=== PATIENT | male | born 1950 | race Caucasian/White ===

== ENCOUNTER 2018-09-04 17:49 | Emergency (ER) | payer OTHER ==
[2018-09-04] MEDS ORDERED: GLUCAGON 1 MG/VIAL ONE ×2 (18:51→20:21)
--- NOTE | 2018-09-04 22:20 | ER ---
Nurse's Notes [facility] Name: Jackson Cortez Age: 68 yrs Sex: Male : 1950 Arrival Date: 09/04/2018 Time: 17:51 Bed 5 Private MD: Lucas Duvall E Diagnosis: Esophageal obstruction-Food bolus Presentation: 09/04 18:08 Presenting complaint: Patient states: " I got some roast beef stuck in my esophagus ph yesterday and now I can swallow things but they won't go down, even water." Denies breathing difficulty, reports discomfort in substernal area. Transition of care: patient was not received from another setting of care. Onset of symptoms was September 04, 2018. Risk Assessment: Do you want to hurt yourself or someone else? Patient reports no desire to harm self or others. Initial Sepsis Screen: Does the patient meet any 2 criteria? No. Patient's initial sepsis screen is negative. Does the patient have a suspected source of infection? No. Patient's initial sepsis screen is negative. Care prior to arrival: None. 18:08 Method Of Arrival: Ambulatory ph 18:08 Acuity: GELA 3 ph Historical: - Allergies: 18:11 No Known Allergies; ph - Home Meds: 18:11 Metformin Oral [Active]; Metoprolol Tartrate Oral [Active]; meloxicam oral oral ph [Active]; - PMHx: 18:11 Diabetes - NIDDM; Hypertension; ph - PSHx: 18:11 Hernia repair; ph - Immunization history:: Adult Immunizations unknown. - Social history:: Smoking status: Patient/guardian denies using tobacco. - Ebola Screening: : No symptoms or risks identified at this time. Screenin:28 Abuse screen: Denies threats or abuse. Denies injuries from another. Nutritional aj1 screening: No deficits noted. Tuberculosis screening: No symptoms or risk factors identified. 23:15 Fall Risk None identified. bb Assessment: 18:28 General: Appears in no apparent distress. comfortable, Behavior is calm, cooperative, aj1 appropriate for age. Pain: Complains of pain in epigastric area. Neuro: Level of Consciousness is awake, alert, obeys commands. Cardiovascular: Patient's skin is warm and dry. Respiratory: Airway is patent Respiratory effort is even, unlabored, Respiratory pattern is regular, symmetrical, Denies shortness of breath. GI: No signs and/or symptoms were reported involving the gastrointestinal system. : No signs and/or symptoms were reported regarding the genitourinary system. EENT: No signs and/or symptoms were reported regarding the EENT system. Derm: No signs and/or symptoms reported regarding the dermatologic system. Skin is pink, warm \\T\\ dry. normal. Musculoskeletal: No signs and/or symptoms reported regarding the musculoskeletal system. Circulation, motion, and sensation intact. 19:30 Reassessment: Patient appears in no apparent distress at this time. No changes from aj1 previously documented assessment. Patient and/or family updated on plan of care and expected duration. Pain level reassessed. Patient is alert, oriented x 3, equal unlabored respirations, skin warm/dry/pink. 19:44 Reassessment: Patient given a glass of water, patient begins drinking small sips. aj1 States that he feels like the medication worked. 20:00 Reassessment: Patient states that when he drank more he felt like it was still getting aj1 stuck but he was able to drink more than he previously was. Notified Steve Iniguez NP. Order received. 20:30 Reassessment: Patient appears in no apparent distress at this time. No changes from aj1 previously documented assessment. Patient and/or family updated on plan of care and expected duration. Pain level reassessed. Patient is alert, oriented x 3, equal unlabored respirations, skin warm/dry/pink. 21:30 Reassessment: Patient appears in no apparent distress at this time. No changes from aj1 previously documented assessment. Patient and/or family updated on plan of care and expected duration. Pain level reassessed. Patient is alert, oriented x 3, equal unlabored respirations, skin warm/dry/pink. 22:27 Reassessment: Patient given fruit cup at this time to observe if tolerated. lp1 23:09 General: Appears in no apparent distress. Behavior is calm, cooperative, Reports has bb something stuck in his throat. Neuro: Level of Consciousness is awake, alert, obeys commands, Oriented to person, place, time, situation. Cardiovascular: No deficits noted. Respiratory: Respiratory effort is even, unlabored, Respiratory pattern is regular, Breath sounds are clear bilaterally. GI: No signs and/or symptoms were reported involving the gastrointestinal system. Derm: Skin is pink, warm \\T\\ dry. Musculoskeletal: Circulation, motion, and sensation intact. 23:11 Reassessment: Nicci Iniguez T[employer] HOUSE OPERATOR HELPER at bedside for discussion of recommendations pt to be bb transferred to facility for further evaluation and treatment. 09/05 00:40 Reassessment: Patient and/or family updated on plan of care and expected duration. Pain bb level reassessed. Patient is alert, oriented x 3, equal unlabored respirations, skin warm/dry/pink. pt awaiting transfer. 01:34 Reassessment: report called to Alva Hernandez RN at [facility]. bb 02:07 Reassessment: [facility] at bedside for transport of pt to [facility] pt is A\\T\\O x 4, bb resp unlabored, IV site intact, patent with fluids infusing no signs of distress noted. Vital Signs: 09/04 18:10 BP 140 / 114; Pulse 67; Resp 18; Temp 98.0; Pulse Ox 97% on R/A; Weight 97.07 kg; ph Height 6 ft. 0 in. (182.88 cm); 18:33 BP 137 / 82; Pulse 75; Resp 18; Pulse Ox 98% on R/A; aj1 19:45 BP 163 / 91; Pulse 82; Resp 18; Pulse Ox 97% on R/A; aj1 21:58 BP 173 / 84; Pulse 65; Resp 18; Pulse Ox 97% on R/A; aj1 23:10 BP 163 / 84; Pulse 68; Resp 16 S; Temp 97.6(O); Pulse Ox 99% on R/A; bb 09/05 01:15 BP 159 / 86; Pulse 68; Resp 14 S; Pulse Ox 98% on R/A; bb 02:08 BP 165 / 97; Pulse 75; Resp 14 S; Temp 98(TE); Pulse Ox 98% on R/A; bb 09/04 18:10 Body Mass Index 29.02 (97.07 kg, 182.88 cm) ph ED Course: 09/04 17:51 Patient arrived in ED. rg4 17:51 Lucas Duvall MD is Private Physician. rg4 18:10 Triage completed. ph 18:11 Arm band placed on Patient placed in an exam room. ph 18:17 Claudia Gilbert, TONE is Primary Nurse. aj1 18:20 Joel Inigue[facility] is [facility]. pm1 18:20 Scar Raines MD is Attending Physician. pm1 18:22 Tyler Huizar MD is Attending Physician. [facility] 18:28 Patient has correct armband on for positive identification. aj1 18:28 No provider procedures requiring assistance completed. aj1 18:40 Inserted saline lock: 20 gauge in right antecubital area, using aseptic technique. aj1 22:17 Lucas Gomez MD is Referral Physician. pm1 09/05 02:10 Patient transferred, IV remains in place. bb Administered Medications: 09/04 18:44 Drug: Glucagon 1 mg Route: IVP; Site: right antecubital; aj1 19:15 Follow up: Response: No adverse reaction aj1 20:16 Drug: Glucagon 1 mg Route: IVP; Site: right antecubital; aj1 20:45 Follow up: Response: No adverse reaction aj1 22:27 Drug: Pepcid 20 mg Route: IVP; Site: right antecubital; lp1 22:47 Follow up: Response: No adverse reaction [facility] 09/05 01:14 Drug: NS 0.9% 1000 ml Route: IV; Rate: 100 ml/hr; Site: right antecubital; bb 02:09 Follow up: IV Status: Infusion continued upon transfer; IV Intake: 100ml bb Intake: 02:09 IV: 100ml; Total: 100ml. bb Outcome: 09/04 22:19 Discharge ordered by MD. pm1 22:48 ER care complete, transfer ordered by MD. pm1 23:50 Instructed on the need for transfer. bb 09/05 02:09 Transferred by ground EMS to [facility], Transfer form completed. bb Condition: stable 02:10 Patient left the ED. bb Signatures: Claudia Gilbert, RN RN aj1 Tyler Huizar MD MD cha Ballard, Brenda RN RN bb Yasmin Ochoa RN RN lp1 Swetha Tran RN RN Joel Iniguez NP [employer] HOUSE OPERATOR HELPER pm1 Leslie Amor rg4
--- NOTE | 2018-09-04 22:20 | EDPHYS ---
Physician Documentation [facility] Name: Jackson Cortez Age: 68 yrs Sex: Male : 1950 Arrival Date: 09/04/2018 Time: 17:51 Bed 5 Private MD: Lucas Duvall E ED Physician Tyler Huizar HPI: 09/04 19:00 This 68 yrs old Male presents to ER via Ambulatory with complaints of Foreign pm1 Body In Throat. 19:00 The patient presents to the emergency department with difficulty swallowing food and pm1 water. Onset: The symptoms/episode began/occurred last night. Possible causes: Piece of meat. The symptoms are aggravated by food , Liquid The symptoms are alleviated by nothing. Associated signs and symptoms: Pertinent positives: Vomiting with eating food and drinking fluids this AM, Pertinent negatives: abdominal pain, fever, Chest pain. Severity of symptoms: in the emergency department the symptoms slightly improved, able to sip some water a little bit at a time. The patient has been recently seen by a physician: the patient's primary care provider, Saw PCP this AM and given prescription of Pepcid and azithromycin for cough. Cough present for 10 days. No fever chest pain or shortness of breath. Patient ate a piece of roast beef last night. Does not have many teeth and tried to chew it to the best of his ability. Feels that the food stuck in the lower aspect of his throat. Last night and this morning he was having difficulty drinking fluids, he would spit it up. Unable to eat any food. No shortness of breath or chest pain. Is able to talk without any difficulty. No drooling present. Went to PCP this AM with complaint of food bolus obstruction and cough for 10 days. Was given a prescription for pantoprazole and azithromycin. Attempted to take the medications but was unable to swallow them with water.. Historical: - Allergies: 18:11 No Known Allergies; ph - Home Meds: 18:11 Metformin Oral [Active]; Metoprolol Tartrate Oral [Active]; meloxicam oral oral ph [Active]; - PMHx: 18:11 Diabetes - NIDDM; Hypertension; ph - PSHx: 18:11 Hernia repair; ph - Immunization history:: Adult Immunizations unknown. - Social history:: Smoking status: Patient/guardian denies using tobacco. - Ebola Screening: : No symptoms or risks identified at this time. ROS: 19:00 Constitutional: Negative for fever, chills, and weight loss, Eyes: Negative for injury, pm1 pain, redness, and discharge, ENT: Negative for injury, pain, and discharge, Neck: Negative for injury, pain, and swelling, Cardiovascular: Negative for chest pain, palpitations, and edema, Abdomen/GI: Negative for abdominal pain, nausea, vomiting, diarrhea, and constipation, Back: Negative for injury and pain, : Negative for injury, bleeding, discharge, and swelling, MS/Extremity: Negative for injury and deformity, Skin: Negative for injury, rash, and discoloration, Neuro: Negative for headache, weakness, numbness, tingling, and seizure. 19:00 Respiratory: Positive for cough, Negative for shortness of breath, sputum production, wheezing. Exam: 19:00 Constitutional: This is a well developed, well nourished patient who is awake, alert, pm1 and in no acute distress. Head/Face: Normocephalic, atraumatic. Eyes: Pupils equal round and reactive to light, extra-ocular motions intact. Lids and lashes normal. Conjunctiva and sclera are non-icteric and not injected. Cornea within normal limits. Periorbital areas with no swelling, redness, or edema. Neck: Trachea midline, no thyromegaly or masses palpated, and no cervical lymphadenopathy. Supple, full range of motion without nuchal rigidity, or vertebral point tenderness. No Meningismus. Chest/axilla: Normal chest wall appearance and motion. Nontender with no deformity. No lesions are appreciated. Cardiovascular: Regular rate and rhythm with a normal S1 and S2. No gallops, murmurs, or rubs. Normal PMI, no JVD. No pulse deficits. 19:00 Abdomen/GI: Soft, non-tender, with normal bowel sounds. No distension or tympany. No guarding or rebound. No evidence of tenderness throughout. Back: No spinal tenderness. No costovertebral tenderness. Full range of motion. Skin: Warm, dry with normal turgor. Normal color with no rashes, no lesions, and no evidence of cellulitis. MS/ Extremity: Pulses equal, no cyanosis. Neurovascular intact. Full, normal range of motion. 19:00 ENT: Mouth: is normal, no drooling, (-) tongue elevation (-) trismus Posterior pharynx: is normal, airway is patent, no erythema, no exudate, no peritonsilar mass, no pooling of secretions, no swelling, Dental exam: missing teeth, diffusely. 19:00 Respiratory: the patient does not display signs of respiratory distress, Respirations: normal, Breath sounds: are clear throughout. 19:00 Neuro: Orientation: is normal, Motor: is normal, moves all fours. Vital Signs: 18:10 BP 140 / 114; Pulse 67; Resp 18; Temp 98.0; Pulse Ox 97% on R/A; Weight 97.07 kg; ph Height 6 ft. 0 in. (182.88 cm); 18:33 BP 137 / 82; Pulse 75; Resp 18; Pulse Ox 98% on R/A; aj1 19:45 BP 163 / 91; Pulse 82; Resp 18; Pulse Ox 97% on R/A; aj1 21:58 BP 173 / 84; Pulse 65; Resp 18; Pulse Ox 97% on R/A; aj1 23:10 BP 163 / 84; Pulse 68; Resp 16 S; Temp 97.6(O); Pulse Ox 99% on R/A; bb 09/05 01:15 BP 159 / 86; Pulse 68; Resp 14 S; Pulse Ox 98% on R/A; bb 02:08 BP 165 / 97; Pulse 75; Resp 14 S; Temp 98(TE); Pulse Ox 98% on R/A; bb 09/04 18:10 Body Mass Index 29.02 (97.07 kg, 182.88 cm) ph MDM: 09/04 18:22 Patient medically screened. [facility] 19:30 ED course: Patient able to drink fluids with out choking or spitting up water. pm1 21:40 Data reviewed: vital signs. Data interpreted: Pulse oximetry: on room air is 97 %. pm1 Interpretation: normal. 22:45 ED course: PO challenge: Patient unable to swallow small foods, ended up vomiting the pm1 food he attempted to eat. 22:47 Counseling: I had a detailed discussion with the patient and/or guardian regarding: the pm1 historical points, exam findings, and any diagnostic results supporting the discharge/admit diagnosis, the need to transfer to another facility, [facility] does not immediately have the required specialist. 01/11 22:45 Order name: CBC with Diff; Complete Time: 23:19 pm1 09/04 22:45 Order name: CMP; Complete Time: 23:40 pm1 09/04 22:56 Order name: Urine Dipstick--Ancillary (enter results); Complete Time: 23:40 ar5 09/04 18:31 Order name: IV Saline Lock; Complete Time: 18:40 pm1 09/04 22:45 Order name: Urine Dipstick-Ancillary (obtain specimen); Complete Time: 22:57 pm1 09/04 22:47 Order name: EKG; Complete Time: 22:48 pm1 09/04 22:47 Order name: EKG - Nurse/Tech; Complete Time: 23:09 pm1 Administered Medications: 18:44 Drug: Glucagon 1 mg Route: IVP; Site: right antecubital; aj1 19:15 Follow up: Response: No adverse reaction aj1 20:16 Drug: Glucagon 1 mg Route: IVP; Site: right antecubital; aj1 20:45 Follow up: Response: No adverse reaction aj 22:27 Drug: Pepcid 20 mg Route: IVP; Site: right antecubital; lp1 22:47 Follow up: Response: No adverse reaction [facility] 09/05 01:14 Drug: NS 0.9% 1000 ml Route: IV; Rate: 100 ml/hr; Site: right antecubital; bb 02:09 Follow up: IV Status: Infusion continued upon transfer; IV Intake: 100ml bb Disposition: 09/04/18 22:[address] [facility]. Diagnosis is Esophageal obstruction - Food bolus. - Reason for transfer: Higher level of care. - Accepting physician is [facility]. - Condition is Stable. - Problem is new. - Symptoms have improved. Addendum: 09/08/2018 06:53 Co-signature as Attending Physician, Tyler Huizar MD I agree with the assessment and c sosa plan of care. Signatures: Dispatcher [employer] Claudia Garcia RN RN aj1 Tyler Huizar MD MD cha Ballard, Brenda RN RN bb Yasmin Ochoa RN RN lp1 Swetha Tran RN RN ph Marinas, Patrick, BULKHEAD CARPENTER [employer] pm1 Corrections: (The following items were deleted from the chart) 09/04 22:38 22:19 09/04/2018 22:19 Discharged to Home. Impression: Foreign body sensation in pm1 throat. Condition is Stable. Forms are Medication Reconciliation Form, Thank You Letter, Antibiotic Education, Prescription Opioid Use. Follow up: Emergency Department; When: As needed; Reason: Worsening of condition. Follow up: Lucas Gomez; When: 2 - 3 days; Reason: Recheck today's complaints, Continuance of care, Re-evaluation by your physician. Problem is new. Symptoms have improved. 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. bb Diagnosis is Esophageal obstruction - Food bolus. Reason for transfer: Higher level of care. Accepting physician is [facility]. Condition is Stable. Problem is new. Symptoms have improved. pm1
[2018-09-04] MEDS ORDERED: FAMOTIDINE 20 MG/2 ML VIAL IV ONE (22:34)
[2018-09-04 23:17] LABS: Absolute Lymphocytes (CBC) 3.1 K/uL (0.7-4.9); Absolute Monocytes 1.1 K/uL (0.1-1.3); Absolute Neutrophil 8.1 K/uL (1.8-8.0); Basophils % 0.8 % (0-1.3); Eosinophils % 2.9 % (0-4.4); Hematocrit 46.3 % (39.6-49.0); Lymphocytes % 24.1 % (15.3-44.8); MPV 8.7 fL (7.6-11.3); Monocytes % 8.6 % (3.3-12.3); RBC Red Blood Cell Count 5.12 M/uL (4.33-5.43)
[2018-09-04 23:24] LABS: Bilirubin Total 0.9 mg/dL (0.2-1.0); Protein, Total 8.7 g/dL (6.4-8.2)
[2018-09-04 23:26] LABS: Urine Blood NEGATIVE (NEG); Urine Glucose NEGATIVE (NEG); Urine Protein 1+ (NEG); Urine Specific Gravity 1.025 (1.005-1.030)
[2018-09-05] MEDS ORDERED: NA CHLORIDE 0.9% 1,000 ML ONE (01:18)
--- NOTE | 2018-09-05 06:36 | EKG ---
Test Date: 2018-09-04 Test Time: 23:06:04 Specialist Wound Care: BESSY MEASUREMENT RESULTS: Intervals: Rate: 65 SD: 150 QRSD: 84 QT: 416 QTc: 432 [place]: P: 64 SD: 150 QRS: 21 T: 40 INTERPRETIVE STATEMENTS: Normal sinus rhythm Nonspecific ST abnormality Abnormal ECG Compared to ECG 01/03/2016 13:01:47 ST (T wave) deviation now present Electronically Signed On 09-05-18 06:35:48 [facility] by Arun Leal
== END 2018-09-05 02:10 | disposition short-term general hospital (02) ==
LOC: ER 17:49
DX: K22.2 Esophageal obstruction (principal); I10 Essential (primary) hypertension; E11.9 Type 2 diabetes mellitus without complications
CPT/HCPCS: 36415; 80053; 81003; 85025; 93005; 96361; 96374; 96375; 99285; J1610 ×2; J7030

== ENCOUNTER 2019-05-10 08:13 | Emergency (ER) | payer OTHER ==
--- OUTSIDE RECORDS SUMMARY | 2019-05-10 08:15 | XMS REPORT | Clinical Summary ---
:1950 Author Organization [facility] Address [address] [place] [address] Care Team Providers Name Role Phone Lucas Duvall Primary Care Provider Allergies No Known Allergies Medications Medication Sig Dispensed Refills Start Date End Date Status metFORMIN Take 500 mg by 0 Active (GLUCOPHAGE) 500 MG mouth 2 (two) tablet times daily with breakfast and dinner. pantoprazole Take 1 tablet 112 tablet 0 09/06/2018 11/01/2018 (PROTONIX) 40 MG (40 mg total) by tablet mouth 2 (two) times daily for 56 days. Active Problems Problem Noted Date Food impaction of esophagus 09/05/2018 Food impaction of esophagus, initial encounter 09/05/2018 Encounters Date Type Specialty Care Team Description 09/05/2018 Anesthesia Event Gastroenterology Rashawn Skelton MD 09/05/2018 Surgery Gastroenterology Tracie Jarvis MD ENDOSCOPY,BIOPSY 09/05/2018 [facility], [facility]; - Encounter Medicine Aleksandr-Tj Essential hypertension; 09/06/2018 Andie, Type 2 diabetes mellitus with complication, without long-term current use of insulin (HCC); Esophageal dysphagia; Samir Mims, Food impaction of esophagus, subsequent encounter; Esophagogastric ulcer, chronic after 05/09/2018 Social History Tobacco Use Types Packs/Day Years Used Date Never Smoker Smokeless Tobacco: Never Used Alcohol Use Drinks/Week oz/Week Comments Yes 2 Cans of beer 1.2 ONCE A YEAR Sex Assigned at Date Recorded Not on file Job Start Date Occupation Industry Not on file Not on file Not on file Travel History Travel Start Travel End No recent travel history available. Last Filed Vital Signs Vital Sign Reading Time Taken Blood Pressure 131/78 09/06/2018 7:34 AM [facility] Pulse 67 09/06/2018 7:34 AM [employer] Temperature 35.7 C (96.3 F) 09/06/2018 7:34 AM [employer] Respiratory Rate 18 09/06/2018 7:34 AM [employer] Oxygen Saturation 96% 09/06/2018 7:34 AM [employer] Inhaled Oxygen Concentration - - Weight - - Height - - Body Mass Index - - Plan of Treatment Not on file Procedures Procedure Name Priority Date/Time Associated Comments Diagnosis REPORT OF PROCEDURE 09/25/2018 4:42 - ENDOSCOPY SCAN PM [facility] [facility] GASTRIN Routine 09/06/2018 5:46 Results for this AM [facility] procedure are in the results section. POCT-GLUCOSE METER Routine 09/05/2018 9:52 Results for this PM [employer] procedure are in the results section. REPORT OF PROCEDURE 09/05/2018 8:17 - ENDOSCOPY URL PM [facility] [facility] POCT-GLUCOSE METER Routine 09/05/2018 4:26 Results for this PM [facility] procedure are in the results section. TISSUE EXAM AP Routine 09/05/2018 4:06 Results for this PM [facility] procedure are in the results section. POCT-GLUCOSE METER Routine 09/05/2018 12:20 Results for this PM [facility] procedure are in the results section. UPPER 09/05/2018 11:30 Food impaction of ENDOSCOPY,BIOPSY AM [employer] esophagus, initial encounter TROPONIN I Routine 09/05/2018 9:57 Results for this AM [employer] procedure are in the results section. TROPONIN I Routine 09/05/2018 5:56 Results for this AM [facility] procedure are in the results section. CBC (HEMOGRAM ONLY) Routine 09/05/2018 5:56 Results for this AM [employer] procedure are in the results section. BASIC METABOLIC Routine 09/05/2018 5:56 Results for this PANEL (7) AM [facility] [facility] procedure are in the results section. POCT-GLUCOSE METER Routine 09/05/2018 5:12 Results for this AM [employer] procedure are in the results section. after 05/09/2018 Results EKG-SCANNED (09/25/2018 4:42 PM [facility] [facility]) Narrative Performed At [facility] (09/06/2018 5:46 AM [facility]) [facility], Serum 16 < OO=816 pg/mL [facility] Comment: NOTE: Reference range applies to fasting specimen only. Specimen Blood Narrative Performed At Performing Lab [facility] [address] [place] [address] Jim Pop MD, PhD, PARK Performing Organization Address City/State/Zipcode Phone Number [facility], [place] [address] [facility] [address] [facility] POC-Glucose meter (09/05/2018 9:52 PM [facility])Only the most recent of4 resultswithin the time period is included. POC-Glucose Meter 243 (H)Comment: TESTED AT 70 - 110 mg/dL [facility] [address] [place] [id number] Specimen Blood Performing Organization Address City/[facility]/Zipcode Phone Number [address] [phone] CENTER REPORT OF PROCEDURE - ENDOSCOPY URL (09/05/2018 8:17 PM [facility]) Narrative Performed At Tissue Exam (09/05/2018 4:06 PM [facility] [facility]) Case Report Surgical Pathology Report Case: [id number] [facility] Authorizing Provider:Tracie Jarvis MDCollected: 09/05/[address] [place] [address] Ordering Location: [address] Received: 09/07/2018 0838 Service Pathologist: Raphael Mckeon MD Specimen:Stomach, Random stomach biopsies r/o H. Pylori DIAGNOSIS STOMACH, RANDOM, BIOPSY: [facility] - CHRONIC INACTIVE GASTRITIS [facility] - FOCAL FEATURES SUGGESTIVE OF REACTIVE GASTROPATHY - NEGATIVE FOR H. PYLORI BY WARTHIN-STARRY STAIN Signing Pathologist Direct Phone Line: [phone] CPT Code(s) 22346, [address]25 [facility] CLINICAL HISTORY Food impaction [facility] SPECIMEN SOURCE Random stomach biopsy [facility] GROSS DESCRIPTION The specimen is received in a [facility] formalin-filled container [facility] labeled with the patient's information and labeled "random stomach biopsy" and consists of multiple fragments of elizalde tissue ranging from 0.1 to 0.5 cm, submitted entirely in A1. CG/ew MICROSCOPIC DESCRIPTION Performed. [facility] SPECIAL STUDIES The interpretation of this case included the use of immunohistochemistry or special stains. [facility] Immunohistochemistry technical testing was performed at [facility], Pathology Laboratory where it was developed and its performance characteristics were determined. It has not be en cleared or approved by the U.S. Food and Drug Administration. The FDA has determined that such clearance or approval is not necessary. The test is used for clinical purposes. It should not be regarde d as investigational or for research. This laboratory is certified under the Clinical Laboratory Improvement Amendments of 1988 (CLIA-88) as qualified to perform high complexity clinical laboratory testing. Specimen Tissue Performing Organization Address City/[facility] Cent[facility]ode Phone Number [address] [address] [place] Troponin I (09/05/2018 9:57 AM [facility]ER)Only the most recent of2 resultswithin the time period is included. Troponin I 0.03 0.00 - 0.03 ng/mL [facility] Specimen Blood Narrative Performed At Troponin I (TnI) levels must be interpreted [facility] in the context of the presenting symptoms and the clinical findings. Elevated TnI levels indicate myocardial damage, but are not specific for ischemic heart disease. Elevated TnI levels are seen in patients with other cardiac conditions (including myocarditis and congestive heart failure), and slight TnI elevations occur in patients with other conditions, including sepsis, renal failure, acidosis, acute neurological disease, and persistent tachyarrhythmia. Performing Organization Address City/[facility] Centercode Phone Number [address] [address] [place] CBC (Hemogram only) (09/05/2018 5:56 AM [facility]) WBC 9.3 3.5 - 10.5 K/L [facility] RBC 4.81 4.63 - 6.08 M/L [facility] Hemoglobin 14.8 13.7 - 17.5 GM/DL [facility] Hematocrit 43.2 40.1 - 51.0 % [facility] MCV 89.8 79.0 - 92.2 fL [facility] MCH 30.8 25.7 - 32.2 pg [facility] MCHC 34.3 32.3 - 36.5 GM/DL [facility] RDW 12.5 11.6 - 14.4 % [facility] Platelets 178 150 - 450 K/CU MM [facility] MPV 10.1 9.4 - 12.4 fL [facility] nRBC 0 0 - 0 /100 WBC [facility] Specimen Blood Performing Organization Address City/State/Zipcode Phone Number [facility] [address] [place] [address] [phone] CENTER Basic Metabolic Panel (09/05/2018 5:56 AM [facility] [facility]ER) Sodium 136 136 - 145 meq/L [facility] Potassium 4.0 3.5 - 5.1 meq/L [facility] Chloride 105 98 - 107 meq/L [facility] CO2 21 (L) 22 - 29 meq/L [facility] BUN 20 7 - 21 mg/dL [facility] Creatinine 1.00 0.57 - 1.25 mg/dL [facility] Glucose 133 (H) 70 - 105 mg/dL [facility] Calcium 9.5 8.4 - 10.2 mg/dL [facility] EGFR 74Comment: ESTIMATED GFR IS mL/min/1.73 sq m [facility] NOT ACCURATE [facility] CLEARANCE IN PREDICTING GLOMERULAR FILTRATION RATE. ESTIMATED GFR IS NOT APPLICABLE FOR DIALYSIS PATIENTS. Specimen Blood Performing Organization Address City/State/Zipcode Phone Number [facility] [address] [place] [address] CENTER after 05/09/2018 Insurance Payer Benefit Plan / Subscriber ID Type Phone Address Group [employer] - A[employer] MEDICARE xxxxxxxx [facility] [phone] [address] MEDICARE MGD HMO POS [id number] [place] [address] Advance Directives For more information, please contact:[address] [phone] Code Status Date Activated Date Inactivated Comments Full Code 09/05/2018 4:21 AM This code status was determined by: Patient
--- OUTSIDE RECORDS SUMMARY | 2019-05-10 08:15 | XMS REPORT ---
:1950 Author Organization [facility] Address [address] [place] [address] [address] [place] [address] Care Team Providers Name Role Phone EARLINE MAURICE Unavailable Unavailable Problems This patient has no known problems. Allergies, Adverse Reactions, Alerts This patient has no known allergies or adverse reactions. Medications This patient has no known medications. Results Test Description Test Time Test Comments Text Results Atomic Results Result Comments TISSUE EXAM 2018-09-08 12:02:00 Surgical Pathology Report Case: [id number] Authorizing Provider: Tracie Jarvis MD Collected: 09/05/2018 1606 Ordering Location: [address] Received: 09/07/2018 0838 Service Pathologist: Raphael Mckeon MD Specimen: Stomach, Random stomach biopsies r/o H. Pylori STOMACH, RANDOM, BIOPSY: - CHRONIC INACTIVE GASTRITIS - FOCAL FEATURES SUGGESTIVE OF REACTIVE GASTROPATHY - NEGATIVE FOR H. PYLORI BY WARTHIN-STARRY STAIN Signing Pathologist Direct Phone Line: [phone] signed by Raphael Mckeon MD on 09/08/2018 at 12:02 [id number] impactionRandom stomach biopsy The specimen is received in a formalin-filled container labeled with the patient's information and labeled "random stomach biopsy" and consists of multiple fragments of elizalde tissue ranging from 0.1 to 0.5 cm, submitted entirely in A1. CG/ew Performed.The interpretation of this case included the use of immunohistochemistry or special stains.WARTHIN-STARRY Immunohistochemistry technical testing was performed at [facility], Pathology Laboratory where it was developed and its performance characteristics were determined. It has not been cleared or approved by the U.S. Food and Drug Administration. The FDA has determined that such clearance or approval is not necessary. The test is used for clinical purposes. It should not be regarded as investigational or for research. This laboratory is certified under the Clinical Laboratory Improvement Amendments of 1988 (CLIA-88) as qualified to perform high complexity clinical laboratory testing. POCT-GLUCOSE METER 2018-09-05 22:22:00 Test Item Value Reference Range Comments POC-GLUCOSE METER (BEAKER) (test 243 mg/dL 70-110 TESTED AT [facility] [address] [facility] [place] [address] POCT-GLUCOSE [id number] 16:28:00 Test Item Value Reference Range Comments POC-GLUCOSE METER (BEAKER) 149 mg/dL 70-110 TESTED AT [place] [id number] (test oylb=1973) [place] [address] POCT-GLUCOSE [id number] 12:46:00 Test Item Value Reference Range Comments POC-GLUCOSE METER (BEAKER) 141 mg/dL 70-110 TESTED AT [address] (test hxdu=9159) [place] [address] TROPONIN [id number] 10:56:00 Test Item Value Reference Range Comments TROPONIN I (BEAKER) (test hamz=837) 0.03 ng/mL 0.00-0.03 Troponin I (TnI) levels must be interpreted in the context of the presenting symptoms and the clinical findings. Elevated TnI levels indicate myocardial damage, but are not specific for ischemic heart disease. Elevated TnI levels are seen in patients with other cardiac conditions (including myocarditis and congestive heart failure), and slight TnI elevations occur in patients with other conditions, including sepsis, renal failure, acidosis, acute neurological disease, and persistent tachyarrhythmia.TROPONIN [id number] 06:48:00 Test Item Value Reference Range Comments TROPONIN I (BEAKER) (test tcag=275) 0.02 ng/mL 0.00-0.03 Troponin I (TnI) levels must be interpreted in the context of the presenting symptoms and the clinical findings. Elevated TnI levels indicate myocardial damage, but are not specific for ischemic heart disease. Elevated TnI levels are seen in patients with other cardiac conditions (including myocarditis and congestive heart failure), and slight TnI elevations occur in patients with other conditions, including sepsis, renal failure, acidosis, acute neurological disease, and persistent tachyarrhythmia.BASIC METABOLIC [id number] 06:46:00 Test Item Value Reference Range Comments SODIUM (BEAKER) (test 136 meq/L 136-145 yctg=380) POTASSIUM (BEAKER) (test 4.0 meq/L 3.5-5.1 spkz=917) CHLORIDE (BEAKER) (test 105 meq/L 98-107 rryn=268) CO2 (BEAKER) (test 21 meq/L 22-29 dgvx=435) BLOOD UREA NITROGEN 20 mg/dL 7-21 (BEAKER) (test mlqo=297) CREATININE (BEAKER) (test 1.00 mg/dL 0.57-1.25 dedi=855) GLUCOSE RANDOM (BEAKER) 133 mg/dL 70-105 (test bgua=962) CALCIUM (BEAKER) (test 9.5 mg/dL 8.4-10.2 pxsw=410) EGFR (BEAKER) (test 74 mL/min/1.73 sq m ESTIMATED GFR IS NOT cwgm=8224) ACCURATE CREATININE CLEARANCE IN PREDICTING GLOMERULAR FILTRATION RATE. ESTIMATED GFR IS NOT APPLICABLE FOR DIALYSIS PATIENTS. CBC (HEMOGRAM ONLY)2018-09-05 06:20:00 Test Item Value Reference Range Comments WHITE BLOOD CELL COUNT (BEAKER) (test ipwx=447) 9.3 K/ L 3.5-10.5 RED BLOOD CELL COUNT (BEAKER) (test abpt=052) 4.81 M/ L 4.63-6.08 HEMOGLOBIN (BEAKER) (test diim=317) 14.8 GM/DL 13.7-17.5 HEMATOCRIT (BEAKER) (test akmu=458) 43.2 % 40.1-51.0 MEAN CORPUSCULAR VOLUME (BEAKER) (test dlaz=871) 89.8 fL 79.0-92.2 MEAN CORPUSCULAR HEMOGLOBIN (BEAKER) (test 30.8 pg 25.7-32.2 nodq=721) MEAN CORPUSCULAR HEMOGLOBIN CONC (BEAKER) (test 34.3 GM/DL 32.3-36.5 thev=361) RED CELL DISTRIBUTION WIDTH (BEAKER) (test 12.5 % 11.6-14.4 edpj=015) PLATELET COUNT (BEAKER) (test eigy=158) 178 K/CU MM 150-450 MEAN PLATELET VOLUME (BEAKER) (test qdhc=665) 10.1 fL 9.4-12.4 NUCLEATED RED BLOOD CELLS (BEAKER) (test 0 /100 WBC 0-0 xmhp=239) POCT-GLUCOSE [id number] 05:40:00 Test Item Value Reference Range Comments POC-GLUCOSE METER (BEAKER) 143 mg/dL 70-110 TESTED AT [facility] [address] [facility] (test kcuu=5614) [facility] [address]
[2019-05-10 09:16] LABS: Absolute Lymphocytes (CBC) 1.3 K/uL (0.7-4.9); Basophils % 1.4 % (0-1.3); Hematocrit 43.2 % (39.6-49.0); Lymphocytes % 21.2 % (15.3-44.8); MPV 9.3 fL (7.6-11.3); RBC Red Blood Cell Count 4.84 M/uL (4.33-5.43)
[2019-05-10 09:29] LABS: Protime INR 1.18
[2019-05-10 09:51] LABS: ALT/SGPT 74 U/L (12-78); AST/SGOT 28 U/L (15-37); Albumin 3.8 g/dL (3.4-5.0); Alkaline Phosphatase 75 U/L (45-117); BUN Blood Urea Nitrogen 13 mg/dL (7-18); Bicarbonate 24 mmol/L (21-32); Bilirubin Direct 0.2 mg/dL (0-0.2); Bilirubin Total 0.6 mg/dL (0.2-1.0); Magnesium 1.9 mg/dL (1.8-2.4); NT PRO-BNP 59 pg/mL (<125); Potassium 4.4 mmol/L (3.5-5.1); Protein, Total 7.9 g/dL (6.4-8.2); Sodium Level 136 mmol/L (136-145); Troponin (Emerg Dept Use Only) < 0.02 ng/mL (0.0-0.045)
[2019-05-10 09:56] LABS: Glucose Level 407 mg/dL (74-106)
--- NOTE | 2019-05-10 09:59 | RAD REPORT ---
EXAM DESCRIPTION: USExtrem Venous W Compress Bil05/10/2019 9:28 am CLINICAL HISTORY: Leg pain and swelling COMPARISON: 2017 FINDINGS: The left common femoral, superficial femoral, popliteal and posterior tibial veins are com pressible and demonstrate augmentation. Echogenic material consistent with acute thrombus is present within the distal right superficial femo ral and right popliteal veins. Veins are not compressible. Chronic thrombus is also visualized. Right common femoral vein is patent. Doppler demonstrates good flow. IMPRESSION: Acute thrombus right superficial femoral and right popliteal veins
[2019-05-10] MEDS ORDERED: ENOXAPARIN 100 MG/ML SYR SQ ONE (10:11)
--- NOTE | 2019-05-10 10:25 | RAD REPORT ---
EXAM DESCRIPTION: CT - Chest For Pe Angio - 05/10/2019 10:13 am CLINICAL HISTORY: Chest pain. DYSPNEA COMPARISON: Extrem Venous W Compress Natalio dated 05/10/2019 TECHNIQUE: CT angiogram of the pulmonary arteries was performed with MIP. All CT scans are performed using dose optimization technique as appropriate and may include automated exposure control or mA/KV adjustment according to patient size. FINDINGS: No evidence of pulmonary thromboembolism. No acute aortic finding demonstrated. Mild diffuse COPD is present. No focal lung infiltrate. No significant pericardial or pleural fluid. Small hiatal hernia. No concerning bony finding. Fatty liver noted. IMPRESSION: No evidence of pulmonary thromboembolism. COPD.
--- NOTE | 2019-05-10 10:26 | RAD REPORT ---
EXAM DESCRIPTION: RAD - Chest Single View - 05/10/2019 10:18 am CLINICAL HISTORY: COUGH Chest pain. COMPARISON: CHEST PA AND LAT 2 VIEW dated 05/24/2011; CHEST PA AND LAT 2 VIEW dated 07/26/2009 FINDINGS: Portable technique limits examination quality. The lungs are mildly emphysematous but grossly clear. The heart is normal in size. No displaced fract ures. IMPRESSION: Mild COPD.
--- NOTE | 2019-05-10 11:31 | EKG ---
Test Date: 2019-05-10 Test Time: 09:32:40 [employer] Ii Assembler: GIGI MEASUREMENT RESULTS: Intervals: Rate: 63 ID: [id number] QRSD: 84 QT: 408 QTc: 417 [place]: P: 53 ID: [id number] QRS: 32 T: 45 INTERPRETIVE STATEMENTS: Normal sinus rhythm ST abnormality, possible digitalis effect Abnormal ECG Compared to ECG 09/04/2018 23:06:04 No significant changes Electronically Signed On 05-10-19 11:30:37 CDT by Humble Mcmanus
[2019-05-10] MEDS ORDERED: INSULIN -REGULAR HUMAN 50 UNIT/0.5 ML ML ONE (11:32)
--- NOTE | 2019-05-10 11:57 | ER ---
Nurse's Notes [facility] Name: Jackson Cortez Age: 68 yrs Sex: Male : 1950 Arrival Date: 05/10/2019 Time: 08:15 Bed 5 Private MD: Lucas Duvall E Diagnosis: Acute embolism and thrombosis of unspecified deep veins of lower extremity-right;Type 2 diabetes mellitus Presentation: 05/10 08:45 Presenting complaint: Patient states: RLE swelling and painful behind the calf, hx of sv DVT. Transition of care: patient was not received from another setting of care. Onset of symptoms was April 2019. Risk Assessment: Do you want to hurt yourself or someone else? Patient reports no desire to harm self or others. Care prior to arrival: None. 08:45 Method Of Arrival: Ambulatory sv 08:45 Acuity: GELA 2 sv 09:11 Initial Sepsis Screen: Does the patient meet any 2 criteria? No. Patient's initial tw2 sepsis screen is negative. Does the patient have a suspected source of infection? No. Patient's initial sepsis screen is negative. Triage Assessment: 08:45 General: Appears in no apparent distress. comfortable, Behavior is calm, cooperative, sv appropriate for age. Pain: Complains of pain in right calf and right rondon Pain currently is 3 out of 10 on a pain scale. Neuro: Level of Consciousness is awake, alert, obeys commands, Oriented to person, place, time, situation. Respiratory: Respiratory effort is even, unlabored, Respiratory pattern is regular, symmetrical. Musculoskeletal: Reports RLE swelling. 09:11 General: Appears in no apparent distress. Behavior is calm, cooperative, appropriate tw2 for age. 09:12 Pain: Complains of pain in right leg. tw2 Historical: - Allergies: 08:45 No Known Allergies; sv - Home Meds: 09:11 Metoprolol Tartrate Oral [Active]; Metformin Oral [Active]; meloxicam Oral [Active]; tw2 - PMHx: 08:45 Diabetes - NIDDM; Hypertension; DVT; sv - PSHx: 08:45 Hernia repair; sv - Immunization history:: Adult Immunizations. - Social history:: Smoking status: . - Ebola Screening: : Patient denies travel to an Ebola-affected area in the 21 days before illness onset. - Family history:: not pertinent. Screenin:10 Abuse screen: Denies threats or abuse. Nutritional screening: No deficits noted. tw2 Tuberculosis screening: No symptoms or risk factors identified. Fall Risk None identified. Assessment: 09:17 General: Appears in no apparent distress. comfortable, Behavior is calm, cooperative, bp appropriate for age. Pain: Complains of pain in right calf. Neuro: No deficits noted. Cardiovascular: No deficits noted. Respiratory: Airway is patent Respiratory effort is even, unlabored, Respiratory pattern is regular, symmetrical. GI: No signs and/or symptoms were reported involving the gastrointestinal system. EENT: No deficits noted. Derm: No deficits noted. Musculoskeletal: No deficits noted. 09:34 Reassessment: Dr. Huizar at bedside at this time. tw2 09:34 Reassessment: Patient appears in no apparent distress at this time. No changes from tw2 previously documented assessment. Patient and/or family updated on plan of care and expected duration. Pain level reassessed. Patient is alert, oriented x 3, equal unlabored respirations, skin warm/dry/pink. 10:46 Reassessment: Patient appears in no apparent distress at this time. No changes from tw2 previously documented assessment. Patient and/or family updated on plan of care and expected duration. Pain level reassessed. Patient is alert, oriented x 3, equal unlabored respirations, skin warm/dry/pink. 11:40 Reassessment: Patient appears in no apparent distress at this time. No changes from tw2 previously documented assessment. Patient and/or family updated on plan of care and expected duration. Pain level reassessed. Patient is alert, oriented x 3, equal unlabored respirations, skin warm/dry/pink. 11:59 Reassessment: Patient appears in no apparent distress at this time. No changes from tw2 previously documented assessment. Patient and/or family updated on plan of care and expected duration. Pain level reassessed. Patient is alert, oriented x 3, equal unlabored respirations, skin warm/dry/pink. 12:07 Reassessment: PT D/C HOME AMBULATORY, DX WITH ACUTE THROMBOSIS AND DIABETES. bp Vital Signs: 08:45 BP 149 / 101; Pulse 74; Resp 18; Temp 97.7; Pulse Ox 97% ; Weight 97.52 kg; Height 6 sv ft. 4 in. (193.04 cm); Pain 3/10; 09:34 BP 136 / 86; Pulse 61; Resp 17; Pulse Ox 97% on R/A; tw2 10:45 BP 140 / 84; Pulse 69; Resp 21; Pulse Ox 96% on R/A; tw2 11:40 BP 138 / 91; Pulse 23; Resp 70; Pulse Ox 96% on R/A; tw2 11:59 BP 138 / 81; Pulse 69; Resp 22; Pulse Ox 95% on R/A; tw2 08:45 Body Mass Index 26.17 (97.52 kg, 193.04 cm) sv ED Course: 08:15 Patient arrived in ED. as 08:15 Lucas Duvall MD is Private Physician. as 08:45 Triage completed. sv 08:46 Arm band placed on. sv 08:46 Placed in gown. Bed in low position. Call light in reach. cafeteria monitor on. Pulse ox tw2 on. NIBP on. 08:47 Tyler Huizar MD is Attending Physician. mishel 08:53 Kristopher Mcpherson RN is Primary Nurse. bp 09:00 Initial lab(s) drawn, by me, sent to lab. Inserted saline lock: 22 gauge in right dh3 forearm, using aseptic technique. Blood collected. 09:42 EKG done, by technical service specialist. reviewed by Tyler Huizar MD. at1 09:55 X-ray completed. Portable x-ray completed in exam room. jr1 09:59 US Extremity Venous W Compression Natalio In Process Unspecified. EDMS 11:53 Lucas Duvall MD is Referral Physician. mishel 11:54 Florence Anguiano MD is Referral Physician. mishel 12:07 No provider procedures requiring assistance completed. IV discontinued, intact, bp bleeding controlled, No redness/swelling at site. Pressure dressing applied. Administered Medications: 10:10 Drug: Lovenox 1 mg/kg Route: Sub-Q; Site: right lower abdomen; tw2 10:59 Follow up: Response: No adverse reaction tw2 11:25 Drug: Insulin Regular Human 10 units {Co-Signature: tw2 (Gauri Evangelista RN).} Route: IVP; bp Site: right antecubital; 12:08 Follow up: Response: No adverse reaction bp 11:25 Drug: Insulin Regular Human 10 units {Co-Signature: tw2 (Gauri Evangelista RN).} Route: Sub-Q; bp Site: right upper arm; 12:08 Follow up: Response: No adverse reaction bp Point of Care Testing: Blood Glucose: 12:03 Blood Glucose: 294 mg/dL; bp Ranges: Outcome: 11:56 Discharge ordered by MD. florentino 12:07 Discharged to home ambulatory. bp 12:07 Condition: stable 12:07 Discharge instructions given to patient, Instructed on discharge instructions, follow up and referral plans. medication usage, Demonstrated understanding of instructions, follow-up care, medications, Prescriptions given X 2. 12:18 Patient left the ED. bp Signatures: Dispatcher [employer] EDMS Lurdes Prakash RN RN sv Anderson, Corey, MD MD cha Ringgold, Jennifer jr1 Tila Geiger Amanda, patent leather sorter EKG Tat1 Gauri Evangelista RN RN tw2 Susu Pitt 3 Kristopher Mcpherson RN RN bp Gauri Evangelista RN tw2 Corrections: (The following items were deleted from the chart) 08:46 08:45 Acuity: GELA 3 sv eliceo
--- NOTE | 2019-05-10 11:58 | EDPHYS ---
Physician Documentation [facility] Name: Jackson Cortez Age: 68 yrs Sex: Male : 1950 Arrival Date: 05/10/2019 Time: 08:15 Bed 5 Private MD: Lucas Duvall E ED Physician Tyler Huizar HPI: 05/10 11:51 This 68 yrs old Male presents to ER via Ambulatory with complaints of Leg mishel Swelling. 11:51 The patient presents with decreased range of motion, pain, swelling. The complaints mishel affect the lateral aspect of right thigh, lateral aspect of right knee, lateral aspect of right calf, right hamstring, posterior aspect of right knee, right calf, medial aspect of right thigh, medial aspect of right knee, medial aspect of right calf, right quadriceps, right knee and right rondon. Context: The problem was sustained at an unknown site. Onset: The symptoms/episode began/occurred 5 day(s) ago. Modifying factors: The symptoms are alleviated by nothing. the symptoms are aggravated by movement. Associated signs and symptoms: The patient has no apparent associated signs or symptoms. Severity of symptoms: At their worst the symptoms were mild, moderate. The patient has experienced similar episodes in the past, a few times. Historical: - Allergies: 08:45 No Known Allergies; sv - Home Meds: 09:11 Metoprolol Tartrate Oral [Active]; Metformin Oral [Active]; meloxicam Oral [Active]; tw2 - PMHx: 08:45 Diabetes - NIDDM; Hypertension; DVT; sv - PSHx: 08:45 Hernia repair; sv - Immunization history:: Adult Immunizations. - Social history:: Smoking status: . - Ebola Screening: : Patient denies travel to an Ebola-affected area in the 21 days before illness onset. - Family history:: not pertinent. ROS: 11:51 Constitutional: Negative for fever, chills, and weight loss, Eyes: Negative for injury, mishel pain, redness, and discharge, ENT: Negative for injury, pain, and discharge, Neck: Negative for injury, pain, and swelling, Cardiovascular: Negative for chest pain, palpitations, and edema, Respiratory: Negative for shortness of breath, cough, wheezing, and pleuritic chest pain, Abdomen/GI: Negative for abdominal pain, nausea, vomiting, diarrhea, and constipation, Back: Negative for injury and pain, : Negative for injury, bleeding, discharge, and swelling, Skin: Negative for injury, rash, and discoloration, Neuro: Negative for headache, weakness, numbness, tingling, and seizure, Psych: Negative for depression, anxiety, suicide ideation, homicidal ideation, and hallucinations, Allergy/Immunology: Negative for hives, rash, and allergies, Endocrine: Negative for neck swelling, polydipsia, polyuria, polyphagia, and marked weight changes, Hematologic/Lymphatic: Negative for swollen nodes, abnormal bleeding, and unusual bruising. 11:51 MS/extremity: Positive for pain, swelling, tenderness, of the right leg. Exam: 11:51 Constitutional: This is a well developed, well nourished patient who is awake, alert, mishel and in no acute distress. Head/Face: Normocephalic, atraumatic. Eyes: Pupils equal round and reactive to light, extra-ocular motions intact. Lids and lashes normal. Conjunctiva and sclera are non-icteric and not injected. Cornea within normal limits. Periorbital areas with no swelling, redness, or edema. ENT: Nares patent. No nasal discharge, no septal abnormalities noted. Tympanic membranes are normal and external auditory canals are clear. Oropharynx with no redness, swelling, or masses, exudates, or evidence of obstruction, uvula midline. Mucous membranes moist. Neck: Trachea midline, no thyromegaly or masses palpated, and no cervical lymphadenopathy. Supple, full range of motion without nuchal rigidity, or vertebral point tenderness. No Meningismus. Chest/axilla: Normal chest wall appearance and motion. Nontender with no deformity. No lesions are appreciated. Cardiovascular: Regular rate and rhythm with a normal S1 and S2. No gallops, murmurs, or rubs. Normal PMI, no JVD. No pulse deficits. Respiratory: Lungs have equal breath sounds bilaterally, clear to auscultation and percussion. No rales, rhonchi or wheezes noted. No increased work of breathing, no retractions or nasal flaring. Abdomen/GI: Soft, non-tender, with normal bowel sounds. No distension or tympany. No guarding or rebound. No evidence of tenderness throughout. Back: No spinal tenderness. No costovertebral tenderness. Full range of motion. Skin: Warm, dry with normal turgor. Normal color with no rashes, no lesions, and no evidence of cellulitis. Neuro: Awake and alert, GCS 15, oriented to person, place, time, and situation. Cranial nerves II-XII grossly intact. Motor strength 5/5 in all extremities. Sensory grossly intact. Cerebellar exam normal. Normal gait. Psych: Awake, alert, with orientation to person, place and time. Behavior, mood, and affect are within normal limits. 11:51 Musculoskeletal/extremity: Extremities: decreased ROM, pain, swelling, tenderness, ROM: intact in all extremities, full active range of motion, full passive range of motion, Circulation is intact in all extremities. Sensation intact. Compartment Syndrome exam of affected extremity: is normal. DVT Exam: negative Homans' sign noted on exam, no appreciated bluish discoloration, no erythema, no increased warmth, pain, swelling, tenderness. Vital Signs: 08:45 BP 149 / 101; Pulse 74; Resp 18; Temp 97.7; Pulse Ox 97% ; Weight 97.52 kg; Height 6 sv ft. 4 in. (193.04 cm); Pain 3/10; 09:34 BP 136 / 86; Pulse 61; Resp 17; Pulse Ox 97% on R/A; tw2 10:45 BP 140 / 84; Pulse 69; Resp 21; Pulse Ox 96% on R/A; tw2 11:40 BP 138 / 91; Pulse 23; Resp 70; Pulse Ox 96% on R/A; tw2 11:59 BP 138 / 81; Pulse 69; Resp 22; Pulse Ox 95% on R/A; tw2 08:45 Body Mass Index 26.17 (97.52 kg, 193.04 cm) sv MDM: 08:47 Patient medically screened. [facility] 11:51 Data reviewed: vital signs, nurses notes, lab test result(s), EKG, radiologic studies, [facility] CT scan, doppler, plain films. 05/10 08:48 Order name: Basic Metabolic Panel [facility] 05/10 08:48 Order name: CBC with Diff [facility] 05/10 08:48 Order name: LFT's [facility] 05/10 08:48 Order name: Magnesium [facility] 05/10 08:48 Order name: NT PRO-BNP [facility] 05/10 08:48 Order name: PT-INR [facility] 05/10 08:48 Order name: Troponin (emerg Dept Use Only) [facility] 05/10 08:53 Order name: D-Dimer bp 05/10 09:29 Order name: CBC with Automated Diff; Complete Time: 09:48 EDTN 05/10 09:32 Order name: Protime (+INR); Complete Time: 09:48 EDTN 05/10 09:44 Order name: D-Dimer; Complete Time: 09:48 EDTN 05/10 09:58 Order name: Basic Metabolic Panel [facility] 05/10 09:58 Order name: Liver (Hepatic) Function [facility]TN 05/10 09:58 Order name: Troponin (Emerg Dept Use Only) [facility] 05/10 08:48 Order name: XRAY Chest (1 view) [facility] 05/10 08:48 Order name: EKG; Complete Time: 08:52 [facility] 05/10 08:48 Order name: Cardiac monitoring; Complete Time: 09:07 [facility] 05/10 08:48 Order name: EKG - Nurse/Tech; Complete Time: 09:07 [facility] 05/10 08:48 Order name: IV Saline Lock; Complete Time: 09:06 [facility] 05/10 08:48 Order name: Labs collected and sent; Complete Time: 09:05 [facility] 05/10 08:48 Order name: O2 Per Protocol; Complete Time: 08:54 [facility] 05/10 08:48 Order name: US Extremity Venous W Compression Natalio [facility] 05/10 09:51 Order name: CT Chest For PE Angio [facility] 05/10 09:58 Order name: NT PRO-BNP [facility] 05/10 09:58 Order name: Magnesium [facility] 05/10 10:47 Order name: Urine Dipstick--Ancillary (enter results) [place] 05/10 12:06 Order name: Glucose, Ancillary Testing [facility] 05/10 08:48 Order name: O2 Sat Monitoring; Complete Time: 08:54 [facility] 05/10 08:48 Order name: Urine Dipstick-Ancillary (obtain specimen); Complete Time: 10:53 [facility] Administered Medications: 10:10 Drug: Lovenox 1 mg/kg Route: Sub-Q; Site: right lower abdomen; tw2 10:59 Follow up: Response: No adverse reaction tw2 11:25 Drug: Insulin Regular Human 10 units {Co-Signature: tw2 (Gauri Evangelista RN).} Route: IVP; bp Site: right antecubital; 12:08 Follow up: Response: No adverse reaction bp 11:25 Drug: Insulin Regular Human 10 units {Co-Signature: tw2 (Gauri Evangelista RN).} Route: Sub-Q; bp Site: right upper arm; 12:08 Follow up: Response: No adverse reaction bp Point of Care Testing: Blood Glucose: 12:03 Blood Glucose: 294 mg/dL; bp Ranges: Critical Glucose Levels:Adult <50 mg/dl or >400 mg/dl <40 mg/dl or >180 mg/dl Disposition: 05/10/19 11:56 Discharged to Home. Impression: Acute embolism and thrombosis of unspecified deep veins of lower extremity - right, Type 2 diabetes mellitus. - Condition is Stable. - Discharge Instructions: Deep Vein Thrombosis, Type 2 Diabetes Mellitus, Diagnosis, Adult, Type 2 Diabetes Mellitus, Diagnosis, Adult, [id number]. - Prescriptions for Eliquis 5 mg Oral tablet - take 1 tablet by ORAL route 2 times per day for 30 days begin 2 tabs po twice a day for 7 days then 1 pill twice a day from then on; 45 tablet. Pepcid 20 mg Oral Tablet - take 1 tablet by ORAL route every 12 hours for 10 days; 20 tablet. - Medication Reconciliation Form, Thank You Letter, Antibiotic Education, Prescription Opioid Use form. - Follow up: Lucas Duvall MD; When: 2 - 3 days; Reason: Recheck today's complaints, Continuance of care, Re-evaluation by your physician. Follow up: Florence Anguiano MD; When: 7 - 10 days; Reason: Recheck today's complaints, Continuance of care, Re-evaluation by your physician. - Problem is new. - Symptoms have improved. Signatures: Dispatcher [employer] Lurdes Bardales RN RN sv Anderson, Corey, MD MD cha Wise, Tara, RN RN tw2 Kristopher Mcpherson RN RN bp Gauri Evangelista RN tw2 Corrections: (The following items were deleted from the chart) 12:18 11:56 05/10/2019 11:56 Discharged to Home. Impression: Acute embolism and thrombosis of bp unspecified deep veins of lower extremity - right; Type 2 diabetes mellitus. Condition is Stable. Forms are Medication Reconciliation Form, Thank You Letter, Antibiotic Education, Prescription Opioid Use. Follow up: Lucas Duvall; When: 2 - 3 days; Reason: Recheck today's complaints, Continuance of care, Re-evaluation by your physician. Follow up: Florence Nova; When: 7 - 10 days; Reason: Recheck today's complaints, Continuance of care, Re-evaluation by your physician. Problem is new. Symptoms have improved. mishel
[2019-05-10 12:27] LABS: Urine Blood NEGATIVE (NEG); Urine Glucose 2+ (NEG); Urine Protein NEGATIVE (NEG)
[2019-05-10 12:32] VITALS: TEMP 97.7
[2019-05-10 12:37] VITALS: BP 138/81; O2SAT 95
== END 2019-05-10 12:18 | disposition home or self-care (01) ==
LOC: ER 08:13
DX: I82.4Z1 Acute embolism and thrombosis of unspecified deep veins of right distal lower extremity (principal); E11.9 Type 2 diabetes mellitus without complications; I10 Essential (primary) hypertension; Z86.718 Personal history of other venous thrombosis and embolism
CPT/HCPCS: 93005; 85025; 80048; 83735; 85610; 82962; 85379; 80076; 81003; 84484; 83880; 71275; 71045; 93970; 96372; 96374; 99285; Q9967; J1650

== ENCOUNTER 2020-10-03 11:26 | Observation (INO) | payer OTHER ==
[2020-10-03 12:28] LABS: Absolute Lymphocytes (CBC) 1.3 K/uL (0.7-4.9); Basophils % 1.4 % (0-1.3); Hematocrit 46.1 % (39.6-49.0); Lymphocytes % 21.6 % (15.3-44.8); MPV 9.2 fL (7.6-11.3); RBC Red Blood Cell Count 5.13 M/uL (4.33-5.43)
[2020-10-03 12:29] LABS: Protime INR 1.14
--- NOTE | 2020-10-03 12:33 | RAD REPORT ---
EXAM DESCRIPTION: Lulu Single View10/03/2020 12:27 pm CLINICAL HISTORY: Chest pain COMPARISON: 2018 FINDINGS: The lungs appear clear of acute infiltrate. The heart is normal size IMPRESSION: No acute abnormalities displayed
[2020-10-03 12:41] LABS: Albumin 3.9 g/dL (3.4-5.0); Bilirubin Direct 0.2 mg/dL (0-0.2); Bilirubin Total 0.5 mg/dL (0.2-1.0); Potassium 4.7 mmol/L (3.5-5.1); Protein, Total 8.1 g/dL (6.4-8.2)
[2020-10-03 12:42] LABS: Troponin (Emerg Dept Use Only) 6.61 ng/mL (0.0-0.045)
--- NOTE | 2020-10-03 12:52 | EDPHYS ---
Physician Documentation [facility] Name: Jackson Cortez Age: 70 yrs Sex: Male : 1950 Arrival Date: 10/03/2020 Time: 11:27 Bed 2 Private MD: ED Physician Tyler Huizar HPI: 10/03 12:42 This 70 yrs old Male presents to ER via Ambulatory with complaints of High mishel Blood Pressure. 12:42 The patient has elevated blood pressure and discovered this at home. Onset: The mishel symptoms/episode began/occurred 3 day(s) ago. Historical: - Allergies: 11:41 No Known Allergies; hb - Home Meds: 11:41 Metformin Oral [Active]; Metoprolol Tartrate Oral [Active]; pantoprazole oral oral hb [Active]; - PMHx: 11:41 Diabetes - NIDDM; DVT; Hypertension; hb - PSHx: 11:41 Hernia repair; hb - Immunization history:: Adult Immunizations up to date. - Social history:: Smoking status: Patient denies any tobacco usage or history of. ROS: 12:48 Constitutional: Negative for fever, chills, and weight loss, Eyes: Negative for injury, mishel pain, redness, and discharge, ENT: Negative for injury, pain, and discharge, Neck: Negative for injury, pain, and swelling, Respiratory: Negative for shortness of breath, cough, wheezing, and pleuritic chest pain, Abdomen/GI: Negative for abdominal pain, nausea, vomiting, diarrhea, and constipation, Back: Negative for injury and pain, : Negative for injury, bleeding, discharge, and swelling, MS/Extremity: Negative for injury and deformity, Skin: Negative for injury, rash, and discoloration, Neuro: Negative for headache, weakness, numbness, tingling, and seizure. 12:48 Cardiovascular: Positive for chest pain, palpitations. Exam: 12:48 Constitutional: This is a well developed, well nourished patient who is awake, alert, mishel and in no acute distress. Head/Face: Normocephalic, atraumatic. Eyes: Pupils equal round and reactive to light, extra-ocular motions intact. Lids and lashes normal. Conjunctiva and sclera are non-icteric and not injected. Cornea within normal limits. Periorbital areas with no swelling, redness, or edema. ENT: Nares patent. No nasal discharge, no septal abnormalities noted. Tympanic membranes are normal and external auditory canals are clear. Oropharynx with no redness, swelling, or masses, exudates, or evidence of obstruction, uvula midline. Mucous membranes moist. Neck: Trachea midline, no thyromegaly or masses palpated, and no cervical lymphadenopathy. Supple, full range of motion without nuchal rigidity, or vertebral point tenderness. No Meningismus. Chest/axilla: Normal chest wall appearance and motion. Nontender with no deformity. No lesions are appreciated. Cardiovascular: Regular rate and rhythm with a normal S1 and S2. No gallops, murmurs, or rubs. Normal PMI, no JVD. No pulse deficits. Respiratory: Lungs have equal breath sounds bilaterally, clear to auscultation and percussion. No rales, rhonchi or wheezes noted. No increased work of breathing, no retractions or nasal flaring. Abdomen/GI: Soft, non-tender, with normal bowel sounds. No distension or tympany. No guarding or rebound. No evidence of tenderness throughout. Back: No spinal tenderness. No costovertebral tenderness. Full range of motion. Male : Normal genitalia with no discharge or lesions. Skin: Warm, dry with normal turgor. Normal color with no rashes, no lesions, and no evidence of cellulitis. MS/ Extremity: Pulses equal, no cyanosis. Neurovascular intact. Full, normal range of motion. Neuro: Awake and alert, GCS 15, oriented to person, place, time, and situation. Cranial nerves II-XII grossly intact. Motor strength 5/5 in all extremities. Sensory grossly intact. Cerebellar exam normal. Normal gait. Psych: Awake, alert, with orientation to person, place and time. Behavior, mood, and affect are within normal limits. 12:48 Musculoskeletal/extremity: DVT Exam: No signs of deep vein thrombosis. no pain, no swelling, no tenderness, negative Homans' sign noted on exam, no appreciated bluish discoloration, no erythema, no increased warmth. 12:55 ECG was reviewed by the Attending Physician. [facility] Vital Signs: 11:38 BP 172 / 106; Pulse 66; Resp 16; Temp 97.7; Pulse Ox 99% on R/A; Weight 92.99 kg; hb Height 6 ft. (182.88 cm); Pain 3/10; 12:15 BP 156 / 90; Pulse 60; Resp 15; Pulse Ox 99% on R/A; sv 12:48 BP 165 / 95; Pulse 53; Resp 10; Pulse Ox 98% on R/A; sv 13:45 BP 156 / 88; Pulse 54 MON; Resp 12; Pulse Ox 99% on R/A; sv 14:43 BP 167 / 90; Pulse 57 MON; Resp 19; Pulse Ox 99% on R/A; sv 20:14 BP 160 / 80; Pulse 60; Resp 18; Pulse Ox 98% ; ea 11:38 Body Mass Index 27.80 (92.99 kg, 182.88 cm) hb 13:45 Sinus bradycardia sv 14:43 Sinus bradycardia sv MDM: 12:03 Patient medically screened. mishel 12:52 Differential diagnosis: hypertensive crisis, Malignant HTN. Data reviewed: vital signs, mishel nurses notes, lab test result(s), EKG, radiologic studies. Data interpreted: classroom monitor: rate is 68 beats/min. Test interpretation: by ED physician or midlevel provider: ECG, plain radiologic studies. Counseling: I had a detailed discussion with the patient and/or guardian regarding: the historical points, exam findings, and any diagnostic results supporting the discharge/admit diagnosis, the presence of at least one elevated blood pressure reading (>120/80) during this emergency department visit, lab results, radiology results, the need for further work-up and treatment in the hospital. Physician consultation: Humble Mcmanus MD and will see patient in inpatient room, cath in am. 10/03 11:58 Order name: Basic Metabolic Panel; Complete Time: 12:45 hb 10/03 11:58 Order name: CBC with Diff; Complete Time: 12:45 hb 10/03 11:58 Order name: LFT's; Complete Time: 12:45 hb 10/03 11:58 Order name: Magnesium; Complete Time: 12:45 hb 10/03 11:58 Order name: NT PRO-BNP; Complete Time: 12:45 hb 10/03 11:58 Order name: PT-INR; Complete Time: 12:45 hb 10/03 11:58 Order name: Troponin (emerg Dept Use Only); Complete Time: 12:45 hb 10/03 12:49 Order name: COVID-19 : Document "Date of Symptom Onset" if Symptomatic. sv 02/ 12:54 Order name: Lipid Profile; Complete Time: 13:26 mishel 10/03 14:00 Order name: Glucose, Ancillary Testing; Complete Time: 14:16 EDMS 10/03 14:02 Order name: SARS-COV-2 RT PCR; Complete Time: 14:16 EDMS 10/03 16:15 Order name: Glucose, Ancillary Testing EDVT 10/03 16:36 Order name: Troponin I EDVT 10/03 11:58 Order name: XRAY Chest (1 view); Complete Time: 12:45 hb 10/03 11:58 Order name: EKG; Complete Time: 11:59 hb 10/03 11:58 Order name: Cardiac monitoring; Complete Time: 12:14 hb 10/03 11:58 Order name: EKG - Nurse/Tech; Complete Time: 12:14 hb 10/03 11:58 Order name: IV Saline Lock; Complete Time: 12:14 hb 10/03 14:16 Order name: EKG; Complete Time: 14:17 [facility] 10/03 11:58 Order name: Labs collected and sent; Complete Time: 12:14 hb 10/03 11:58 Order name: O2 Per Protocol; Complete Time: 12:14 hb 10/03 11:58 Order name: O2 Sat Monitoring; Complete Time: 12:14 hb 10/03 14:16 Order name: EKG - Nurse/Tech; Complete Time: 14:40 mishel EC:55 Rate is 68 beats/min. QRS [place] is Normal. [place] interval is normal. QRS interval is mishel normal. QT interval is normal. No Q waves. T waves are Inverted in leads II, III, aVF, V1, V2, V3, V4, V5, V6. No ST changes noted. Clinical impression: NSR w/ Non-specific ST/T Changes. Interpreted by me. Reviewed by me. Administered Medications: 12:42 Drug: Lovenox 1 mg/kg Route: Sub-Q; Site: left lower abdomen; sv 12:53 Follow up: Response: No adverse reaction sv 12:43 Not Given (Duplicate Order): Lovenox 1 mg/kg Sub-Q once mishel 12:45 Drug: Aspirin Chewable Tablet 324 mg Route: PO; sv 12:52 Follow up: Response: No adverse reaction sv 12:45 Drug: Pepcid 20 mg Route: IVP; Site: left antecubital; sv 12:52 Follow up: Response: No adverse reaction sv 12:45 Drug: Norvasc 10 mg Route: PO; sv 12:52 Follow up: Response: No adverse reaction sv 12:46 CANCELLED (Duplicate Order): Lovenox 1 mg/kg Sub-Q once sv 12:53 Not Given (Pt's HR is 52 at this time, informed Dr Huizar, ordered not to give): sv Lopressor (metoprolol TARTRATE) 50 mg PO once 12:55 Drug: Insulin Regular Human 10 units {Co-Signature: ss (Karyna Hicks RN).} Route: sv Sub-Q; Site: right lower abdomen; 12:59 Follow up: Response: No adverse reaction sv 12:56 Drug: PlaVIX 300 mg Route: PO; sv 12:59 Follow up: Response: No adverse reaction sv 12:59 Drug: Lipitor 20 mg Route: PO; sv 13:38 Follow up: Response: No adverse reaction sv Disposition: 10/03/20 12:51 Hospitalization ordered by Yamil Dominguez for Inpatient Admission. Preliminary diagnosis are Non-ST elevation (NSTEMI) myocardial infarction, Essential (primary) hypertension, Type 1 diabetes mellitus. - Bed requested for Telemetry/MedSurg (Inpatient). - Status is Inpatient Admission. ea - Condition is Stable. - Problem is new. - Symptoms have improved. Signatures: Dispatcher [employer] EDMS Catia Mohr Stephanie, RN RN sv Anderson, Corey, MD MD cha Garcia, Cindy, RN RN cg Baxter, Heather, RN RN hb Antunez, Elena, RN RN ea Shelby Smirch RN ss Corrections: (The following items were deleted from the chart) 12:46 12:46 Lovenox 1 mg/kg Sub-Q once ordered. sv sv 13:16 12:50 CORONAVIRUS ordered. EDMS EDMS 14:44 12:51 Hospitalization Ordered by Yamil Dominguez for Inpatient Admission. Preliminary bd diagnosis is Non-ST elevation (NSTEMI) myocardial infarction; Essential (primary) hypertension; Type 1 diabetes mellitus. Bed requested for Intensive Care Unit. Status is Inpatient Admission. Condition is Stable. Problem is new. Symptoms have improved. mishel 19:40 14:44 10/03/2020 12:51 Hospitalization Ordered by Yamil Dominguez for Inpatient cg Admission. Preliminary diagnosis is Non-ST elevation (NSTEMI) myocardial infarction; Essential (primary) hypertension; Type 1 diabetes mellitus. Bed requested for [facility] ER HOLD. Status is Inpatient Admission. Condition is Stable. Problem is new. Symptoms have improved. bd 20:14 19:40 10/03/2020 12:51 Hospitalization Ordered by Yamil Dominguez for Inpatient ea Admission. Preliminary diagnosis is Non-ST elevation (NSTEMI) myocardial infarction; Essential (primary) hypertension; Type 1 diabetes mellitus. Bed requested for Telemetry/MedSurg (Inpatient). Status is Inpatient Admission. Condition is Stable. Problem is new. Symptoms have improved. cg
--- NOTE | 2020-10-03 12:52 | ER ---
Nurse's Notes [facility] Name: Jackson Cortez Age: 70 yrs Sex: Male : 1950 Arrival Date: 10/03/2020 Time: 11:27 Bed 2 Private MD: Diagnosis: Non-ST elevation (NSTEMI) myocardial infarction;Essential (primary) hypertension;Type 1 diabetes mellitus Presentation: 10/03 11:38 Chief complaint: Intermittent chest tightness, pain with breathing, and left arm pain x hb 1 week. High home BP readings SBP >200. Coronavirus screen: At this time, the client does not indicate any symptoms associated with coronavirus-19. Ebola Screen: No symptoms or risks identified at this time. Initial Sepsis Screen: Does the patient meet any 2 criteria? No. Patient's initial sepsis screen is negative. Does the patient have a suspected source of infection? No. Patient's initial sepsis screen is negative. Risk Assessment: Do you want to hurt yourself or someone else? Patient reports no desire to harm self or others. Onset of symptoms was September 20, 2020. 11:38 Method Of Arrival: Ambulatory hb 11:38 Acuity: GELA 3 hb Historical: - Allergies: 11:41 No Known Allergies; hb - Home Meds: 11:41 Metformin Oral [Active]; Metoprolol Tartrate Oral [Active]; pantoprazole oral oral hb [Active]; - PMHx: 11:41 Diabetes - NIDDM; DVT; Hypertension; hb - PSHx: 11:41 Hernia repair; hb - Immunization history:: Adult Immunizations up to date. - Social history:: Smoking status: Patient denies any tobacco usage or history of. Screenin:00 Abuse screen: Denies threats or abuse. Denies injuries from another. Nutritional sv screening: No deficits noted. Tuberculosis screening: No symptoms or risk factors identified. Fall Risk None identified. Assessment: 12:00 Also complains of shortness of breath. General: Appears in no apparent distress. sv comfortable, well groomed, well developed, Behavior is calm, cooperative, appropriate for age. Pain: Complains of pain in right clavicle, left clavicle, anterior aspect of right upper chest, anterior aspect of left upper chest, mid-sternal area and left arm Pain radiates to left arm Pain currently is 3 out of 10 on a pain scale. Quality of pain is described as dull, Pain began 2-3 days ago. Is intermittent, episodic, Aggravated by deep breathing. Neuro: Level of Consciousness is awake, alert, obeys commands, Oriented to person, place, time, situation, Moves all extremities. Full function Gait is steady, Speech is normal. Cardiovascular: Patient's skin is warm and dry. Pulses are 3+ in right radial artery and left radial artery Rhythm is sinus rhythm. Respiratory: Reports shortness of breath Airway is patent Respiratory effort is even, unlabored, Respiratory pattern is regular, symmetrical. Derm: Skin is intact, Skin is pink, warm \\T\\ dry. Musculoskeletal: Range of motion: intact in all extremities. 13:30 Reassessment: Patient appears in no apparent distress at this time. No changes from sv previously documented assessment. Patient and/or family updated on plan of care and expected duration. Pain level reassessed. Patient is alert, oriented x 3, equal unlabored respirations, skin warm/dry/pink. 14:13 Reassessment: Dr Dominguez at the bedside. sv 14:43 Reassessment: Patient appears in no apparent distress at this time. No changes from sv previously documented assessment. Patient and/or family updated on plan of care and expected duration. Pain level reassessed. Patient is alert, oriented x 3, equal unlabored respirations, skin warm/dry/pink. 19:57 General: Appears in no apparent distress. Behavior is appropriate for age. Neuro: Level ea of Consciousness is awake, alert, obeys commands, Oriented to person, place, time, situation. Respiratory: Airway is patent Respiratory effort is even, unlabored, Respiratory pattern is regular, symmetrical. Derm: Skin is pink, warm \\T\\ dry. 20:04 Reassessment: Report given to receiving nurse. ea 20:14 Reassessment: Patient and/or family updated on plan of care and expected duration. Pain ea level reassessed. Patient is alert, oriented x 3, equal unlabored respirations, skin warm/dry/pink. Pt admitted to second floor, left ED via wheelchair per tech, pt tolerating well. Vital Signs: 11:38 BP 172 / 106; Pulse 66; Resp 16; Temp 97.7; Pulse Ox 99% on R/A; Weight 92.99 kg; hb Height 6 ft. (182.88 cm); Pain 3/10; 12:15 BP 156 / 90; Pulse 60; Resp 15; Pulse Ox 99% on R/A; sv 12:48 BP 165 / 95; Pulse 53; Resp 10; Pulse Ox 98% on R/A; sv 13:45 BP 156 / 88; Pulse 54 MON; Resp 12; Pulse Ox 99% on R/A; sv 14:43 BP 167 / 90; Pulse 57 MON; Resp 19; Pulse Ox 99% on R/A; sv 20:14 BP 160 / 80; Pulse 60; Resp 18; Pulse Ox 98% ; ea 11:38 Body Mass Index 27.80 (92.99 kg, 182.88 cm) hb 13:45 Sinus bradycardia sv 14:43 Sinus bradycardia sv ED Course: 11:27 Patient arrived in ED. as 11:40 Triage completed. hb 11:41 Arm band placed on. hb 11:44 Lurdes Prakash, RN is Primary Nurse. sv 12:00 Patient has correct armband on for positive identification. Placed in gown. Bed in low sv position. Call light in reach. Side rails up X 1. court monitor on. Pulse ox on. NIBP on. Door closed. Head of bed elevated. 12:01 EKG done, by ED staff, reviewed by Tyler Huizar MD. sv 12:03 Tyler Huizar MD is Attending Physician. mishel 12:05 Inserted saline lock: 20 gauge in left antecubital area, using aseptic technique. Blood sv collected. Flushed left antecubital with 5 ml normal saline. Patient maintains SpO2 saturation greater than 95% on room air. 12:14 X-ray(s) taken. sv 12:26 XRAY Chest (1 view) In Process Unspecified. EDMS 12:51 Yamil Dominguez is Hospitalizing Provider. mishel 13:00 No provider procedures requiring assistance completed. Patient admitted, IV remains in sv place. intact. 14:31 COVID-19 : Document "Date of Symptom Onset" if Symptomatic. Sent. sv 14:37 EKG done, by ED staff, reviewed by Tyler Huizar MD. sv 19:12 Primary Nurse role handed off by Lurdes Prakash, RN sv 19:24 Shania Lerner, RN is Primary Nurse. ea Administered Medications: 12:42 Drug: Lovenox 1 mg/kg Route: Sub-Q; Site: left lower abdomen; sv 12:53 Follow up: Response: No adverse reaction sv 12:43 Not Given (Duplicate Order): Lovenox 1 mg/kg Sub-Q once mishel 12:45 Drug: Aspirin Chewable Tablet 324 mg Route: PO; sv 12:52 Follow up: Response: No adverse reaction sv 12:45 Drug: Pepcid 20 mg Route: IVP; Site: left antecubital; sv 12:52 Follow up: Response: No adverse reaction sv 12:45 Drug: Norvasc 10 mg Route: PO; sv 12:52 Follow up: Response: No adverse reaction sv 12:46 CANCELLED (Duplicate Order): Lovenox 1 mg/kg Sub-Q once sv 12:53 Not Given (Pt's HR is 52 at this time, informed Dr Huizar, ordered not to give): sv Lopressor (metoprolol TARTRATE) 50 mg PO once 12:55 Drug: Insulin Regular Human 10 units {Co-Signature: ss (Karyna Hicks RN).} Route: sv Sub-Q; Site: right lower abdomen; 12:59 Follow up: Response: No adverse reaction sv 12:56 Drug: PlaVIX 300 mg Route: PO; sv 12:59 Follow up: Response: No adverse reaction sv 12:59 Drug: Lipitor 20 mg Route: PO; sv 13:38 Follow up: Response: No adverse reaction sv Intake: 14:42 PO: 480ml (Water); Total: 480ml. sv Output: 14:42 Urine: 900ml (Voided); Total: 900ml. sv Outcome: 12:51 Decision to Hospitalize by Provider. mishel 13:00 Admitted to ER Hold. Please see [facility] for further documentation. sv 13:00 Condition: stable 13:00 Instructed on the need for admit. 20:14 Patient left the ED. ea Signatures: Dispatcher [employer] Lurdes Bardales RN RN sv Anderson, Corey, MD MD cha Martinez, Amelia as Baxter, Heather, RN RN hb Antunez, Elena, RN RN ea Shelby Smirch RN ss Corrections: (The following items were deleted from the chart) 11:43 11:38 Chief complaint: Chest tightness, pain with breathing, and left arm pain x 1 hb week. High home BP readings SBP >200. hb 11:47 11:38 Chief complaint: Intermittent chest tightness, pain with breathing, and left arm hb pain x 1 week. High home BP readings SBP >200. hb
[2020-10-03] MEDS ORDERED: ASPIRIN 81 MG CHEWABLE TABLET ONE (12:54)
[2020-10-03] MEDS ORDERED: ENOXAPARIN 100 MG/ML SYR SQ ONE (12:54)
[2020-10-03] MEDS ORDERED: FAMOTIDINE 20 MG/2 ML VIAL IV ONE (12:54)
[2020-10-03] MEDS ORDERED: AMLODIPINE 10 MG TAB ONE (12:54)
[2020-10-03] MEDS ORDERED: CLOPIDOGREL 75 MG TABLET ONE (13:09)
[2020-10-03] MEDS ORDERED: INSULIN -REGULAR HUMAN 50 UNIT/0.5 ML ML ONE ×2 (13:10→17:35)
[2020-10-03] MEDS ORDERED: ATORVASTATIN 20 MG TAB ONE (13:14)
--- NOTE | 2020-10-03 14:43 | P.HP ---
Certification for Inpatient Patient admitted to: Inpatient With expected LOS: >2 Midnights Practitioner: I am a practitioner with admitting privileges, knowledge of patient current condition, hospital course, and medical plan of care. Services: Services provided to patient in accordance with Admission requirements found in Title 42 Section 412.3 of the Code of Federal Regulations Patient History Date of Service: 10/03/20 Reason for admission: Chest pain History of Present Illness: 70-year-old woman with a past medical history of hypertension and diabetes presented to the emergency department with a complaint of chest pain of onset 3 days ago, intermittent in nature. Patient report anterior chest pain, described as a burning sensation, which radiates to involve both arms. It occurred intermittently, no known aggravating or relieving factors, associated with elevated blood pressure. The chest pain reoccurred this morning prompted him to come to the emergency department. His initial troponin in the ED is elevated to 6. EKG demonstrates sinus rhythm with T-wave inversions. Chest x-ray is unremarkable. Dr. Mcmanus was informed about the patient who recommended h ospitalization for cardiac catheterization tomorrow. He also recommended to initiate full-dose Lovenox, aspirin and beta-nohemi. Patient is hospitalized for further management. Allergies No Known Allergies Allergy (Verified 06/06/15 10:06) Home Medications: Metformin HCl [Glucophage] 500 mg PO BIDWM 06/06/15 Metoprolol Succinate [Toprol Xl] 25 mg PO BID 06/06/15 Ciprofloxacin HCl [Cipro] 500 mg PO BID #10 tablet 06/07/15 Hydrocodone/Acetaminophen [Vicodin 5-325 mg Tablet] 1 each PO Q4H PRN #40 tablet 06/07/15 Ondansetron HCl [Zofran] 4 mg PO Q6H PRN #10 tablet 06/07/15 - Past Medical/Surgical History -: Diabetes -: Hypertension -: Hernia repair - Family History Mother -: Stroke Brother -: Diabetes - Social History Smoking Status: Former smoker Alcohol use: No CD- Drugs: No Caffeine use: No Review of Systems Other: Except as documented, all other systems reviewed and negative. Physical Examination - Physical Exam General: Alert, In no apparent distress, Oriented x3 HEENT: Atraumatic, PERRLA, Mucous membr. moist/pink, EOMI Neck: Supple, 2+ carotid pulse no bruit, JVD not distended Respiratory: Clear to auscultation bilaterally, Normal air movement Cardiovascular: No edema, Normal pulses, Regular rate/rhythm, Normal S1 S2 Gastrointestinal: Normal bowel sounds, Soft and benign, Non-distended, No ascites Musculoskeletal: No swelling, No tenderness Integumentary: No rashes, No erythema Neurological: Normal speech, Normal strength at 5/5 x4 extr, Cranial nerves 3-12 intact - Studies Laboratory Data (last 24 hrs) 10/03/20 12:05: Triglycerides 232 H, Cholesterol 177, HDL Cholesterol 30 L, Cholesterol/HDL Ratio 5.90 10/03/20 12:05: PT 13.1 H, INR 1.14 10/03/20 12:05: WBC 5.90, Hgb 15.6, Hct 46.1, Plt Count 169 10/03/20 12:05: Sodium 136, Potassium 4.7, BUN 20 H, Creatinine 1.17, Glucose 346 H, Magnesium 2.0, Total Bilirubin 0.5, AST 29, ALT 75, Alkaline Phosphatase 71 Assessment and Plan - Problems (Diagnosis) (1) Chest pain Current Visit: Yes Status: Acute (2) NSTEMI (non-ST elevated myocardial infarction) Current Visit: Yes Status: Acute (3) Hypertension Current Visit: Yes Status: Acute (4) DM type 2 (diabetes mellitus, type 2) Current Visit: Yes Status: Acute - Plan Admit patient to the medical floor. Patient given full-dose Lovenox in the ED Will order aspirin, metoprolol, Lipitor. Continue to trend troponin Check echocardiogram. Check lipid profile Cardiology consult requested. Dr. Mcmanus is aware. Insulin sliding scale for glucose management NPO at midnight. Blood pressure control. Patient has borderline bradycardia and remain unknown to increase dose of metoprolol to control his blood pressure. Will consider adding amlodipine to keep his systolic blood pressure below 140. - Advance Directives Does patient have a Living Will: No Does patient have a Durable POA for Healthcare: No
[2020-10-03] MEDS ORDERED: MORPHINE 2 MG/ML SYR IV PRN (15:39)
[2020-10-03] MEDS ORDERED: NITROGLYCERIN 0.4 MG/TAB SL PRN (15:39)
[2020-10-03] MEDS: INSULIN -REGULAR HUMAN 50 UNIT/0.5 ML ML SQ SCH ×2 (16:30→21:00)
[2020-10-03] MEDS ORDERED: PNEUMOCOCCAL VACCINE 0.5 ML IMVAC ONE (20:00)
[2020-10-03] MEDS ORDERED: INFLUENZA VACCINE (for 3y+) 0.5 ML DOSE IMVAC ONE (20:00)
[2020-10-03 21:14] VITALS: BMI 27.8
[2020-10-03] MEDS: METOPROLOL TAR 25 MG TAB PO SCH (22:02)
[2020-10-04 05:45] LABS: Absolute Lymphocytes (CBC) 2.4 K/uL (0.7-4.9); Basophils % 1.3 % (0-1.3); Hematocrit 42.2 % (39.6-49.0); Lymphocytes % 28.1 % (15.3-44.8); MPV 9.2 fL (7.6-11.3); RBC Red Blood Cell Count 4.77 M/uL (4.33-5.43)
[2020-10-04 05:56] LABS: Potassium 4.1 mmol/L (3.5-5.1)
[2020-10-04] MEDS: METOPROLOL TAR 25 MG TAB PO SCH (06:03)
[2020-10-04] MEDS ORDERED: HEPA 1000U/500MLS 1,000 UNIT/500 ML BAG IV ONE (07:04)
[2020-10-04] MEDS ORDERED: LIDOCAINE 1% MPF 30 ML VIAL ONE (07:04)
[2020-10-04] MEDS ORDERED: NA CHLORIDE 0.9% 500 ML ONE (07:24)
[2020-10-04] MEDS: INSULIN -REGULAR HUMAN 50 UNIT/0.5 ML ML SQ SCH ×2 (07:30→12:20)
[2020-10-04] MEDS ORDERED: MIDAZOLAM HCL 2 MG/2 ML INJ ONE ×2 (07:33→07:52)
[2020-10-04] MEDS ORDERED: FENTANYL CITR 100 MCG/2 ML ONE (07:33)
[2020-10-04] MEDS ORDERED: ATROPINE SULF 1 MG/10 ML SYR IV ONE (07:33)
[2020-10-04] MEDS ORDERED: NA CHLORIDE 0.9% 0 ML ONE (07:34)
--- OUTSIDE RECORDS SUMMARY | 2020-10-04 07:58 | XMS REPORT | Clinical Summary ---
:1950 Author Organization [facility] Address [address] [place] [address] Care Team Providers Name Role Phone Bird Duvall MD Primary Care Provider Allergies No Known Allergies Medications Medication Sig Dispensed Refills Start Date End Date Status metFORMIN Take 500 mg by 0 Activ e (GLUCOPHAGE) 500 MG mouth 2 (two) times tablet daily with breakfast and dinner. Active Problems Problem Noted Date Food impaction of esophagus 09/05/2018 Food impaction of esophagus, initial encounter 019 Social History Tobacco Use Types Packs/Day Years Used Date Never Smoker Smokeless Tobacco: Never Used Alcohol Use Drinks/Week oz/Week Comments Yes 2 Cans of beer 2.0 ONCE A YEAR Sex Assigned at Date Recorded Not on file Last Filed Vital Signs Not on file Plan of Treatment Health Maintenance Due Date Last Done Comments COLON CANCER SCREENING COLONOSCOPY 1950 DIABETIC EYE EXAM 1960 URINE MICROALBUMIN 1959 PNEUMOCOCCAL 65+ YRS (1 of 1 - [id number]) 2014 HEMOGLOBIN A1C 09/05/2018 MEDICARE ANNUAL WELLNESS (YEAR 2 or FIRST YEAR if no 08/26/2019 IPPE) INFLUENZA VACCINE (#1) 2020 Results Not on fileafter 10/03/2019 Insurance Payer Benefit Plan Subscriber ID Effective Phone Address Typ e / Group Dates [employer]ETNA - [employer]ET[employer] [id number] 2018-Pres [phone] [address] [employer] MEDICARE MGD MEDICARE HMO ent [id number] Contracted CARE POS [place] [id number] Advance Directives For more information, please contact: [phone] Code Status Date Activated Date Inactivated Comments Full Code 09/05/2018 4:21 AM This code status was determined by: Patient
--- OUTSIDE RECORDS SUMMARY | 2020-10-04 07:59 | XMS REPORT | Continuity of Care Document ---
:1950 Author Organization [facility] t Address [address] [place] [address] Care Team Providers Name Role Phone Bird Duvall MD Primary Care Physician ULYSSES MAURICE Attending Clinician Unavailable ULYSSES MAURICE Admitting Clinician Unavailable Problems Condition Condition Condition Status Onset Resolution Last Treating Co mments Source Name Details Category Date Date Treatment Clinician Date Food Food Disease Active [facility] impaction 09-05 Luke [facility] - of of 00:00: Medical esophagus esophagus 00 Cent er Allergies, Adverse Reactions, Alerts This patient has no known allergies or adverse reactions. Social History Social Habit Start Date Stop Date Quantity Comments Source Sex Assigned At [facility] Tobacco use and 2018-09-21 2018-09-21 Never used [facility] kes - exposure 00:00:00 00:00:00 [facility] Center Alcohol intake 2018-09-21 2018-09-21 [facility]00 of alcohol [facility] (finding) Alcohol Comment 2018-09-05 2018-09-05 ONCE A YEAR [facility] - 00:[facility]00 00:00:00 [facility] Center Smoking Status Start Date Stop Date Source Never smoker [facility] kes [facility] Medications Ordered Filled Start Stop Current Ordering Indication Dosage Frequency Signature Comments Components Source Medication Medication Date Date Medication? Clinician (SIG) Name Name metFORMIN Yes 500mg Take [address] [facility] [address] (GLUCOPHAGE 1-13 mg by [facility] - ) 500 MG 12:47: mouth 2 Medica l tablet 35 (two) Center times daily with breakfast and dinner. Procedures This patient has no known procedures. Plan of Care Planned Activity Planned Date Details Comments Source Future Scheduled 2020-04-25 INFLUENZA VACCINE (#1) [facility] Test 00:00:00 [code = INFLUENZA Medical Ce nter VACCINE (#1)] Future Scheduled 2019-08-[address] [facility] - Test 00:00:00 WELLNESS (YEAR 2 or Medical Center FIRST YEAR if no IPPE) [code = MEDICARE ANNUAL WELLNESS (YEAR 2 or FIRST YEAR if no IPPE)] Future Scheduled 2018-09-[address] [facility] - Test 00:00:00 [facility] (procedure) [code = 51648004] Future Scheduled 2014 PNEUMOCOCCAL 65+ YRS [facility] - Test 00:00:00 (1 of 1 - Medical Center [id number] PCV13) [code = PNEUMOCOCCAL 65+ YRS (1 of 1 - [id number] PCV13)] Future Scheduled 1959 DIABETIC EYE EXAM [facility] - Test 00:00:00 [code = DIABETIC EYE Medical Center EXAM] Future Scheduled 1959 Urine screening for [facility] - Test 00:00:00 protein (procedure) [facility] [code = 793665903] Future Scheduled [address] [facility] - Test 00:00:00 [facility] colon (procedure) [code = 989400325] Results Test Description Test Time Test Comments Results Result Sour e Comments TISSUE EXAM 2018-09-08 Surgical Pathology Report 12:02:00 Case: [id number] Authorizing Provider: Tracie Jarvis MD Collected: 09/05/2018 1606 Ordering Location: [address] Received: 09/07/2018 0838 Service Pathologist: Raphael Mckeon MD Specimen: Stomach, Random stomach biopsies r/o H. Pylori STOMACH, RANDOM, BIOPSY: - CHRONIC INACTIVE GASTRITIS - FOCAL FEATURES SUGGESTIVE OF REACTIVE GASTROPATHY - NEGATIVE FOR H. PYLORI BY WARTHIN-STARRY STAIN Signing Pathologist Direct Phone Line: [phone] y signed by Raphael Mckeon MD on 09/08/2018 at 12:02 [id number], [id number] impactionRandom stomach biopsy The specimen is received in a formalin-filled container labeled with the patient's information and labeled "random stomach biopsy" and consists of multiple fragments of elizalde tissue ranging from 0.1 to 0.5 cm, submitted entirely in A1. CG/ew Performed.The interpretation of this case included the use of immunohistochemistry or special stains.TAWNYATHIN-STARSUNIL Immunohistochemistry technical testing was performed at [facility], Pathology Laboratory where it was [...] 2018-09-05 22:22:00 Test Item Value Reference Range Interpretation Comme nts POC-GLUCOSE METER (Memorop) (test 243 mg/dL 70-110 [address]) [facility] [address] POCT-GLUCOSE [id number] 16:28:00 Test Item Value Reference Range Interpretation Comments POC-GLUCOSE METER 149 mg/dL 70-110 H TESTED AT [place] [address] ([facility]) (test code = STANLEY Tan [facility] 1538) [id number] POCT-GLUCOSE [id number] 12:46:00 Test Item Value Reference Range Interpretation Comments POC-GLUCOSE METER 141 mg/dL 70-110 H TESTED AT [place] [address] ([facility]) (test code = STANLEY Tan [facility] 1538) [id number] TROPONIN [id number] 10:56:00 Test Item Value Reference Range Interpretation Comments TROPONIN I (Memorop) (test code = 0.03 ng/mL 0.00-0.03 397) Troponin I (TnI) levels must be interpreted [...] acidosis, acute neurological disease, and persistent tachyarrhythmia.TROPONIN [id number] 06:48:00 Test Item Value Reference Range Interpretation Comments TROPONIN I (BEAKER) (test code = 0.02 ng/mL 0.00-0.03 397) Troponin I (TnI) levels must be interpreted [...] acute neurological disease, and persistent tachyarrhythmia.BASIC METABOLIC [id number] 06:46:00 Test Item Value Reference Range Interpretation Comments SODIUM (BEAKER) 136 meq/L 136-145 (test code = 381) POTASSIUM (BEAKER) 4.0 meq/L 3.5-5.1 (test code = 379) CHLORIDE (BEAKER) 105 meq/L 98-107 (test code = 382) CO2 (BEAKER) (test 21 meq/L 22-29 L code = 355) BLOOD UREA NITROGEN 20 mg/dL 7-21 (BEAKER) (test code = 354) CREATININE (BEAKER) 1.00 mg/dL 0.57-1.25 (test code = 358) GLUCOSE RANDOM 133 mg/dL 70-105 H (BEAKER) (test code = 652) CALCIUM (BEAKER) 9.5 mg/dL 8.4-10.2 (test code = 697) EGFR (BEAKER) (test 74 mL/min/1.73 ESTIMA CHRISTOPHER GFR IS code = 1092) sq m NOT ACCURATE CREATININE CLEARANCE IN PREDICTING GLOMERULAR FILTRATION RATE . ESTIMATED GFR I S NOT APPLICABLE FOR DIALYSIS PATIEN TS. CBC (HEMOGRAM ONLY)2018-09-05 06:20:00 Test Item Value Reference Range Interpretation Comments WHITE BLOOD CELL COUNT (BEAKER) 9.3 K/ L 3.5-10.5 (test code = 775) RED BLOOD CELL COUNT (BEAKER) 4.81 M/ L 4.63-6.08 (test code = 761) HEMOGLOBIN (BEAKER) (test code = 14.8 GM/DL 13.7-17.5 410) HEMATOCRIT (BEAKER) (test code = 43.2 % 40.1-51.0 411) MEAN CORPUSCULAR VOLUME ([facility]) 89.8 fL 79.0-92.2 (test code = 753) MEAN CORPUSCULAR HEMOGLOBIN 30.8 pg 25.7-32.2 ([facility]) (test code = 751) MEAN CORPUSCULAR HEMOGLOBIN CONC 34.3 GM/DL 32.3-36.5 ([facility]) (test code = 752) RED CELL DISTRIBUTION WIDTH 12.5 % 11.6-14.4 ([facility]) (test code = 412) PLATELET COUNT ([facility]) (test 178 K/CU MM 150-450 code = 756) MEAN PLATELET VOLUME ([facility]) 10.1 fL 9.4-12.4 (test code = 754) NUCLEATED RED BLOOD CELLS 0 /100 WBC 0-0 ([facility]) (test code = 413) POCT-GLUCOSE [id number] 05:40:00 Test Item Value Reference Range Interpretation Comments POC-GLUCOSE METER 143 mg/dL 70-110 H TESTED AT [facility] 0693 ([facility]) (test code = ST[place] 1538) [id number]
[2020-10-04 08:36] VITALS: O2SAT 97
--- NOTE | 2020-10-04 08:57 | CON ---
Date of Consultation: 10/03/2020 Mr. Jackson Cortez admitted to Dr. Dominguez's service on 10/03/2020. Reason For Consultation: Non-ST elevation myocardial infarction. History Of Present Illness: Mr. Cortez is a 70-year-old male, who has a history of hypertension, sloane betes, gastroesophageal reflux disease. No previous cardiac history. He came in with cardiac sympto nv for coronary artery disease with substernal chest pressure, radiating to the left jaw and left arm with and without exertion. Symptoms lasted long enough to him to decide to come to the emergency ro om. His EKG showed possible inferolateral ischemia and troponin was 6.61. He had a glucose of 201. The rest of the blood work was unremarkable. Chest x-ray was negative. He denied PND, orthopnea, p edal edema, palpitations, or syncope. Denied any fever or chills. Past Medical History: As stated above. Allergies: NONE. Review of Systems: Negative. Social History: Positive for tobacco. Family History: Positive for heart disease. Medications: At home include metoprolol, metformin, and Protonix. Physical Examination: General: He was a very pleasant man, in no acute distress. Vital Signs: Stable, afebrile. HEENT: Negative. Neck: Supple without any bruit, lymphadenopathy, JVD, or thyromegaly. Chest: Clear to auscultation and percussion. Cardiac: Revealed a regular rhythm and rate. No murmurs, gallops, or rubs. Abdomen: Benign. Extremities: Revealed no clubbing, cyanosis, or edema. Diagnostic Data: As stated earlier. Impression And Plan: 1.Non-ST elevation myocardial infarction. 2.Hypertension. 3.Diabetes. 4.Gastroesophageal reflux disease. 5.Abnormal EKG and troponin consistent with coronary artery disease. There is an echocardiogram pending. The patient needs a heart catheterization to define his coronary anatomy. The patient understands the risks and the benefits of the procedure and he agreed to proce ed. He is presently on metoprolol. He received aspirin, Plavix, and Lovenox. He should be on a hig h dose statin as well. We will see what the catheterization shows before making further decisions. ROOSEVELT/LETY Voice ID: [id number] Report ID: [id number]
[2020-10-04] MEDS ORDERED: ASPIRIN EC 81 MG TAB PO SCH (09:00)
--- NOTE | 2020-10-04 09:39 | OP ---
Date of Procedure: 10/04/2020 Surgeon: Humble Mcmanus MD Orientor: Deb Gilbert. Procedure: Left heart catheterization, selective coronary arteriogram, indication with non-ST elevat ion myocardial infarction. Indication For Procedure: Mr. Cortez is a 70-year-old, has a history of hypertension, dyslipidemia, tobacco use, family history of heart disease with symptoms of unstable angina on and off for about 6 months. He came in yesterday with worsening chest pain. Procedure In Detail: Brought to the label designer today. Prepped and draped in the routine sterile fashi on. Given Versed and fentanyl for sedation. A 6-Lao sheath was introduced in the right common fe moral artery successfully using the Seldinger technique. Agueda catheter left and right were used t o do the coronary injections. His RCA was normal, dominant, with slight plaquing. Circumflex and le ft main had minimal plaquing. The LAD was completely occluded distally, looked like an old occlusion , what looked like fine collaterals from the circumflex system to the distal LAD. The distal LAD its elf appeared to be also severely diseased and very small. The patient tolerated the procedure well a nd there were no complications. Total conscious sedation 45 minutes. Postoperative Diagnosis: Severe coronary artery disease. Plan: Plan is for medical therapy with aspirin, statin, Plavix, and beta-blockers. The patient will be at bedrest for 2 hours after Angio-Seal of his right common femoral artery. He will go home in 2 hours. I will see him in the of gladys in 2 weeks. ROOSEVELT/LETY Voice ID: [id number] Report ID: [id number]
--- NOTE | 2020-10-04 11:55 | EKG ---
Test Date: 2020-10-03 Test Time: 14:37:13 Thread Machine Operator: KRISTEL MEASUREMENT RESULTS: Intervals: Rate: 63 DE: 160 QRSD: 82 QT: 446 QTc: 456 Orange: P: 55 DE: 160 QRS: 1 T: -53 INTERPRETIVE STATEMENTS: Normal sinus rhythm Possible Inferior infarct, age undetermined Anterior infarct, age undetermined T wave abnormality, consider lateral ischemia Abnormal ECG Compared to ECG 10/03/2020 12:01:21 No significant changes Electronically Signed On 10-04-20 11:53:33 BATCH PLANT OPERATOR by Humble Mcmanus
--- NOTE | 2020-10-04 11:56 | EKG ---
Test Date: 2020-10-03 Test Time: 12:01:21 Valve Maker: KRISTEL MEASUREMENT RESULTS: Intervals: Rate: 68 LA: 166 QRSD: 72 QT: 428 QTc: 455 Cameron: P: 58 LA: 166 QRS: -12 T: -51 INTERPRETIVE STATEMENTS: Normal sinus rhythm Inferior infarct, age undetermined Anterior infarct, age undetermined T wave abnormality, consider lateral ischemia Abnormal ECG Compared to ECG 05/10/2019 09:32:40 Myocardial infarct finding now present T-wave abnormality now present Possible ischemia now present ST (T wave) deviation no longer present Electronically Signed On 10-04-20 11:53:38 FARM MACHINERY SET UP MECHANIC by Humble Mcmanus
--- NOTE | 2020-10-04 11:59 | P.DS ---
Admission Date: 10/03/20 Discharge Date: 10/04/20 Disposition: ROUTINE DISCHARGE Discharge Condition: FAIR Reason for Admission: Chest pain - Problems (1) Chest pain Current Visit: Yes Status: Acute (2) NSTEMI (non-ST elevated myocardial infarction) Current Visit: Yes Status: Acute (3) Hypertension Current Visit: Yes Status: Acute (4) DM type 2 (diabetes mellitus, type 2) Current Visit: Yes Status: Acute (5) CAD (coronary artery disease) Current Visit: Yes Status: Acute Brief History of Present Illness: 70-year-old woman with a past medical history of hypertension and diabetes presented to the emergency department with a complaint of chest pain of onset 3 days ago, intermittent in nature. Patient report anterior chest pain, described as a burning sensation, which radiates to involve both arms. It occurred intermittently, no known aggravating or relieving factors, associated with elevated blood pressure. The chest pain reoccurred this morning prompted him to come to the emergency department. His initial troponin in the ED is elevated to 6. EKG demonstrates sinus rhythm with T-wave inversions. Chest x-ray is unremarkable. Dr. Mcmanus was informed about the patient who recommended hospitalization for cardiac catheterization tomorrow. He also recommended to initiate full-dose Lovenox, aspirin and beta-nohemi. Patient hospitalized for further management. Hospital Course: Patient placed under observation. Troponin trended flat but significantly elevated. Patient was treated with full-dose Lovenox, aspirin and Plavix. He was seen in consultation by cardiology-Dr. Mcmanus. Cardiac catheterization was performed. Patient noted to have 100% occlusion of mid LAD on unamenable to intervention per cardiology. Patient noted to have collateral vessels. Cardiology recommended medical management at this time. Patient deemed clinically stable for discharge. He is discharged with aspirin Plavix, metoprolol and Lipitor. He will follow with Dr. Mcmanus within 2 weeks. Vital Signs/Physical Exam: Temp Pulse Resp BP Pulse Ox 98.6 F 67 13 139/84 98 10/04/20 04:00 10/04/20 08:35 10/04/20 08:35 10/04/20 08:35 10/04/20 04:00 General: Alert, In no apparent distress, Oriented x3 HEENT: Mucous membr. moist/pink Respiratory: Clear to auscultation bilaterally, Normal air movement Cardiovascular: No edema, Regular rate/rhythm, Normal S1 S2 Gastrointestinal: Soft and benign, Non-distended, No tenderness Musculoskeletal: No swelling, No tenderness Integumentary: No rashes Neurological: Normal strength at 5/5 x4 extr, Cranial nerves 3-12 intact Laboratory Data at Discharge: WBC 8.50 K/uL (4.3-10.9) D 10/04/20 05:10 Hgb 14.8 g/dL (13.6-17.9) 10/04/20 05:10 Hct 42.2 % (39.6-49.0) 10/04/20 05:10 Plt Count 172 K/uL (152-406) 10/04/20 05:10 PT 13.1 SECONDS (9.5-12.5) H 10/03/20 12:05 INR 1.14 10/03/20 12:05 Sodium 140 mmol/L (136-145) 10/04/20 05:10 Potassium 4.1 mmol/L (3.5-5.1) 10/04/20 05:10 BUN 14 mg/dL (7-18) 10/04/20 05:10 Creatinine 1.06 mg/dL (0.55-1.3) 10/04/20 05:10 Glucose 187 mg/dL (74-106) H 10/04/20 05:10 Magnesium 2.0 mg/dL (1.8-2.4) 10/03/20 12:05 Total Bilirubin 0.5 mg/dL (0.2-1.0) 10/03/20 12:05 AST 29 U/L (15-37) 10/03/20 12:05 ALT 75 U/L (12-78) 10/03/20 12:05 Alkaline Phosphatase 71 U/L (45-117) 10/03/20 12:05 Troponin I 7.19 ng/mL (0.0-0.045) H* 10/03/20 23:49 Triglycerides 250 mg/dL (<150) H 10/04/20 05:10 Cholesterol 177 mg/dL (<200) 10/04/20 05:10 HDL Cholesterol 26 mg/dL (40-60) L 10/04/20 05:10 Cholesterol/HDL Ratio 6.81 10/04/20 05:10 Home Medications: Metformin HCl [Glucophage*] 850 mg PO BIDWM 06/06/15 Cyanocobalamin (Vitamin B-12) [Vitamin B12] 2,500 mcg PO DAILY 10/03/20 Metoprolol Tartrate [Lopressor*] 25 mg PO BID 10/03/20 Pantoprazole [Protonix Tab*] 40 mg PO DAILY 10/03/20 Aspirin [Aspirin EC 81 MG] 81 mg PO DAILY #30 tablet. 10/04/20 Atorvastatin Calcium [Lipitor] 40 mg PO BEDTIME #30 tab 10/04/20 Clopidogrel Bisulfate [Plavix] 75 mg PO DAILY #30 tablet 10/04/20 Nitroglycerin [Nitrostat*] 0.4 mg SL UD PRN #30 tab 10/04/20 New Medications: Aspirin [Aspirin EC 81 MG] 81 mg PO DAILY #30 tablet. Atorvastatin Calcium [Lipitor] 40 mg PO BEDTIME #30 tab Nitroglycerin [Nitrostat*] 0.4 mg SL UD PRN #30 tab PRN Reason: Pain Scale 2-4 (Mild) Clopidogrel Bisulfate [Plavix] 75 mg PO DAILY #30 tablet Diet: ADA Activity: Ad shanique Followup: Obey Carr PA [Primary Care Provider] - 1-2 Weeks Humble Mcmanus MD [ACTIVE - CAN ADMIT] - 1-2 Weeks
--- NOTE | 2020-10-04 12:06 | ECHO ---
HEIGHT: 6 ft 0 in WEIGHT: 205 lb 3.2 oz DATE OF STUDY: 10/04/[address]: abdulaziz juarez 2-DIMENSIONAL: YES M.MODE: YES DOPPLER: YES COLOR FLOW: YES TDS: PORTABLE: DEFINITY: BUBBLE STUDY: DIAGNOSIS: NON ST ELEVATION MYOCARDIAL INFARCTION CARDIAC HISTORY: CATHERIZATION: YES SURGERY: PROSTHETIC VALVE: PACEMAKER: MEASUREMENTS (cm) DIASTOLIC (NORMALS) SYSTOLIC (NORMALS) IVSd 1.1 (0.6-1.2) LA Diam (1.9-4.0) LVEF 61% LVIDd 3.2 (3.5-5.7) LVIDs 2.2 (2.0-3.5) %FS 31% LVPWd 1.2 (0.6-1.2) Ao Diam 3.0 (2.0-3.7) 2 DIMENSIONAL ASSESSMENT: RIGHT ATRIUM: NORMAL LEFT ATRIUM: NORMAL RIGHT VENTRICLE: NORMAL LEFT VENTRICLE: NORMAL TRICUSPID VALVE: NORMAL MITRAL VALVE: MITRAL ANNULAR CALCIFICATION PULMONIC VALVE: NORMAL AORTIC VALVE: SCLEROSIS PERICARDIAL EFFUSION: NONE AORTIC ROOT: NORMAL LEFT VENTRICULAR WALL MOTION: NORMAL DOPPLER/COLOR FLOW: NORMAL COMMENTS: MITRAL ANNULAR CALCIFICATION. AORTIC SCLEROSIS - NO STENOSIS. NORMAL LEFT VENTRICULAR SIZE AND FUNCTION. NO WALL MOTION ABNORMALITY. TECHNOLOGIST: CAROLINE MAGAÑA
[2020-10-04 14:13] VITALS: BP 118/77; TEMP 97.3
== END 2020-10-04 14:11 | disposition home or self-care (01) ==
LOC: ER 11:26 → ERHOLD 14:29 → INTOOBSV 14:29 → 2ND 20:05
PROVIDERS: ADMIT Internal Medicine; ATTEND Internal Medicine
DX: I21.4 Non-ST elevation (NSTEMI) myocardial infarction (principal); I10 Essential (primary) hypertension; E11.9 Type 2 diabetes mellitus without complications; I25.10 Atherosclerotic heart disease of native coronary artery without angina pectoris; Z20.822 Contact with and (suspected) exposure to COVID-19; R94.31 Abnormal electrocardiogram [ECG] [EKG]; K21.9 Gastro-esophageal reflux disease without esophagitis; Z79.84 Long term (current) use of oral hypoglycemic drugs
CPT/HCPCS: 93005 ×2; 93306; 85025 ×2; 80048 ×2; 36415; 83735; 85610; 80061 ×2; 82947 ×5; 80076; 84484 ×4; 83880; 71045; 93454; 96372; 96374; 99285; U0003; C1893; C1760; J2250 ×2; J3010; J1650; G0378 ×4; J7040; J1644; J0583

== ENCOUNTER 2023-10-14 11:00 | Day surgery (SDC) | payer OTHER ==
[2023-10-09 14:01] LABS: Hematocrit 43.9 % (39.6-49.0); MCV 89.1 fL (80-100); MPV 7.7 fL (7.6-11.3); Platelets 248 thou/uL (152-406); RBC Red Blood Cell Count 4.92 M/uL (4.33-5.43)
[2023-10-09 14:07] LABS: Protime INR 1.3
[2023-10-09 14:18] LABS: Potassium 4.2 mEq/L (3.5-5.1)
--- NOTE | 2023-10-09 14:23 | RAD REPORT ---
EXAM DESCRIPTION: RAD - Chest Pa And Lat (2 Views) - 10/09/2023 2:01 pm CLINICAL HISTORY: Pre op pending heart catheterization Chest pain. COMPARISON: Chest Single View dated 10/03/2020; Chest Single View dated 05/10/2019; CHEST PA AND LAT 2 VIEW dated 05/24/2011; CHEST PA AND LAT 2 VIEW dated 07/26/2009 TECHNIQUE: PA and lateral views of the chest were obtained. FINDINGS: The lungs are hyperexpanded compatible with COPD. The heart is upper limit of normal in si ze. No fracture or aggressive bony process. IMPRESSION: COPD without acute process identified. The USPSTF recommends annual screening for lung cancer with low-dose CT (LDCT) in adults aged 50 to 80 years who have a 20 pack-year smoking history and currently smoke or have quit within the past 15 years.
--- NOTE | 2023-10-10 15:01 | EKG ---
Test Date: 2023-10-09 Test Time: 14:47:08 Case Resolution Specialist: GARETT MEASUREMENT RESULTS: Intervals: Rate: 59 PA: 166 QRSD: 80 QT: 388 QTc: 384 [place]: P: 47 PA: 166 QRS: 18 T: 31 INTERPRETIVE STATEMENTS: Sinus bradycardia Otherwise normal ECG Compared to ECG 10/03/2020 14:37:13 Sinus rhythm no longer present Myocardial infarct finding no longer present T-wave abnormality no longer present Possible ischemia no longer present Electronically Signed On 10-10-23 15:00:09 MANAGER CARDIAC by Tj Webber
[2023-10-14] MEDS ORDERED: NA CHLORIDE 0.9% 500 ML ONE (11:38)
[2023-10-14] MEDS ORDERED: LIDOCAINE 1% 20 ML MDV ONE (14:05)
[2023-10-14] MEDS ORDERED: HEPA 1000U/500MLS 2,000 UNIT/1,000 ML BAG IV ONE (14:05)
[2023-10-14] MEDS ORDERED: FENTANYL CITR 100 MCG/2 ML ONE (14:06)
[2023-10-14] MEDS ORDERED: HEPARIN 5000 UNIT/ML 1 ML VIAL ONE (14:06)
[2023-10-14] MEDS ORDERED: TICAGRELOR 90 MG TABLET PO ONE (14:06)
[2023-10-14] MEDS ORDERED: MIDAZOLAM HCL 2 MG/2 ML INJ ONE (14:06)
[2023-10-14] MEDS ORDERED: ATROPINE SULF 1 MG/10 ML SYR IV ONE (14:06)
[2023-10-14] MEDS ORDERED: VERAPAMIL HCL 10 MG/4 ML VIAL IV ONE (14:06)
[2023-10-14] MEDS ORDERED: CLOPIDOGREL 75 MG TABLET ONE (14:07)
[2023-10-14] MEDS ORDERED: HEPARIN 10,000 UNIT/10 ML VIAL IV ONE (14:07)
[2023-10-14] MEDS ORDERED: ASPIRIN 325 MG TAB ONE (14:07)
[2023-10-14 17:55] VITALS: O2SAT 100
[2023-10-14 18:57] VITALS: BP 133/75
--- NOTE | 2023-10-15 03:26 | OP ---
Date of Procedure: 10/14/2023 Surgeon: ADEN CHAPIN Procedures Performed: 1.Selective coronary angiogram. 2.Left heart catheterization. 3.Failed attempt at PCI of distal LAD, LINEWORKER. Indication: Chest pain with abnormal stress test. Access: Right radial artery 6-Ukrainian, closed with TR band. Complications: None. Bleeding: Less than 50 mL. Anesthesia: Total sedation time was 65 minutes, used fentanyl, Versed. Description Of Procedure: After risks, benefits, and alternatives were explained, the patient agreed to procedure and signed informed consent. The patient was brought into cardiac catheterization [facility], prepped and draped in usual sterile fashion. Then, I accessed right radial artery using pedi atric micropuncture kit, placed a 6-Ukrainian slender sheath, and took a 6-Ukrainian JL3.5 catheter over J- wire into the aortic root, engaged left main, took standard views, and exchanged for a 6-Ukrainian JR4 c atheter across the aortic valve over the wire, measured the LVEDP. Pullback did not record any gradi ent. I then engaged RCA, took standard views, and then gave systemic heparin to assure ACT level abo ve 250 throughout the procedure and then I took a 6-Ukrainian EBU3.5 guide over J-wire into the aortic r oot, engaged left main, and systemic heparin was given to assure ACT level above 250. Then, we took a run-through wire and could not cross the LINEWORKER, tried with a Fielder XT wire, and 2.0 balloon as a marx pport and could not cross the LINEWORKER. There was lot of branches coming off right where the LINEWORKER was and the wire kept going at that direction. At this moment, I decided to abort the procedure, removed the wire for angiogram was satisfactory. No complications. Removed the guide and sheath, placed TR ban d with good hemostasis. Findings: 1.Left main is very large, distal has 30% stenosis, but very large lumen. 2.LAD proximally is normal. Mid segment has diffuse 60% and then focal 50%. Diagonal branches are small. Then, the LAD becomes aneurysmal and then there is ACT of 100% with O2 collaterals filling th e distal part and a failed PCI attempt. 3.Left circumflex, moderate size with luminal irregularities. 4.RCA, large and dominant. Proximal 40% stenosis, mid aneurysmal segment, and then distal 30% to 40 % stenosis and then the PDA on the right side has diffuse 30% to 40% stenosis, PLP is a small vessel. 5.LVEDP normal at 6 mmHg. Conclusions: 1.Severe distal LAD stenosis, LINEWORKER with O2 collaterals, failed PCI attempt. 2.Moderate coronary artery disease, also with a normal LVEDP. Recommendation: Medical management. If with the maximum medical management continues to have sympto ms, we will plan to take him to [place] for re-attempt of LINEWORKER of PCI. SR/MODL Voice ID: [id number] Report ID: [id number]
== END 2023-10-14 18:45 | disposition home or self-care (01) ==
LOC: CCL 11:00
PROVIDERS: ATTEND Internal Medicine
DX: I25.10 Atherosclerotic heart disease of native coronary artery without angina pectoris (principal); I25.82 Chronic total occlusion of coronary artery; I65.23 Occlusion and stenosis of bilateral carotid arteries; I10 Essential (primary) hypertension; E78.2 Mixed hyperlipidemia; E11.9 Type 2 diabetes mellitus without complications; K21.9 Gastro-esophageal reflux disease without esophagitis; Z87.891 Personal history of nicotine dependence; Z79.02 Long term (current) use of antithrombotics/antiplatelets; Z79.82 Long term (current) use of aspirin; Z79.899 Other long term (current) drug therapy
CPT/HCPCS: 93005; 85025; 80048; 36415; 83721; 85610; 82947; 85347 ×2; 85730; 71046; 92920; 93458; 76937; C1893; Q9967; C1725; J1644; J2001; J2250; J3010; J7040; J0461

== ENCOUNTER 2024-01-01 02:12 | Emergency (ER) | payer OTHER ==
[2024-01-01] MEDS ORDERED: ACETAMINOPHEN 500 MG TAB ONE (03:00)
[2024-01-01] MEDS ORDERED: IBUPROFEN 400 MG TAB ONE (03:01)
[2024-01-01] MEDS ORDERED: TRAMADOL HCL 50 MG TAB ONE (04:52)
--- NOTE | 2024-01-01 04:54 | EDPHYS ---
Physician Documentation [facility] Name: Jackson Cortez Age: 73 yrs Sex: Male : 1950 Arrival Date: 01/01/2024 Time: 02:12 Bed 13 Private MD: ED Physician Joseph Clay HPI: 12/31 02:44 This 73 yrs old Male presents to ER via Ambulatory with complaints of Low sp4 Back Pain. 04:50 73-year-old male presents with left-sided pelvic pain and also posterior back pain sp4 after he fell on the parking lot yesterday. On arrival patient is ambulatory . Historical: - Allergies: 02:39 No Known Allergies; jb4 - PMHx: 02:39 Hypertension; DVT; Diabetes - NIDDM; "clogged heart arteries" (Diabetes - NIDDM); jb4 - PSHx: 02:39 heart cath (Diabetes - NIDDM); jb4 - Immunization history:: Adult Immunizations up to date. - Infectious Disease History:: Denies. - Social history:: Smoking status: Patient denies any tobacco usage or history of. Patient uses alcohol, but reports only rare drinking. - Family history:: not pertinent. ROS: 04:50 Constitutional: Negative for fever, chills, and weight loss, positive for pain in the sp4 left pelvis also posterior back pain 04:50 All other systems are negative, Exam: 04:50 Constitutional: This is a well developed, well nourished patient who is awake, alert, sp4 and in no acute distress. Head/Face: Normocephalic, atraumatic. Eyes: Pupils equal round and reactive to light, extra-ocular motions intact. Lids and lashes normal. Conjunctiva and sclera are not injected. Cornea within normal limits. Periorbital areas with no swelling, redness, or edema. ENT: Nares patent. No nasal discharge, no septal abnormalities noted. Tympanic membranes are normal and external auditory canals are clear. Oropharynx with no redness, swelling, or masses, exudates, or evidence of obstruction, uvula midline. Mucous membranes moist. Neck: Trachea midline, no thyromegaly or masses palpated, and no cervical lymphadenopathy. Supple, full range of motion without nuchal rigidity, or vertebral point tenderness. Chest/axilla: Normal chest wall appearance and motion. Nontender with no deformity. No lesions are appreciated. Cardiovascular: Regular rate and rhythm with a normal S1 and S2. No gallops, murmurs, or rubs. Normal PMI, no JVD. No pulse deficits. Respiratory: Lungs have equal breath sounds bilaterally, clear to auscultation and percussion. No rales, rhonchi or wheezes noted. No increased work of breathing, no retractions or nasal flaring. Abdomen/GI: Soft, with normal bowel sounds. No distension or tympany. No guarding or rebound. No evidence of tenderness throughout. Back: No spinal tenderness. No costovertebral tenderness. Skin: Warm, dry with normal turgor. Normal color with no rashes, no lesions, and no evidence of cellulitis. MS/ Extremity: Pulses equal, no cyanosis. Neurovascular intact. Full, normal range of motion. Neuro: Awake and alert, GCS 15, oriented to person, place, time, and situation. Cranial nerves II-XII grossly intact. Motor strength 5/5 in all extremities. Sensory grossly intact. Psych: Awake, alert, with orientation to person, place and time. Behavior, mood, and affect are within normal limits Vital Signs: 02:38 Pulse 64; Resp 16; Temp 98.6(TE); Pulse Ox 100% on R/A; Weight 89.81 kg (R); Height 6 jb4 ft. 0 in. (R); 03:00 BP 164 / 87; Pulse 66; Resp 17 S; Pulse Ox 100% on R/A; ha1 04:00 BP 140 / 87; Pulse 68; Resp 17 S; Pulse Ox 98% on R/A; ha1 02:38 Body Mass Index 26.85 (89.81 kg, 182.88 cm) jb4 MDM: 02:50 Patient medically screened. sp4 04:41 ED course: EXAM DESCRIPTION: Femur Left CLINICAL HISTORY: pain after a fall COMPARISON: sp4 None. FINDINGS: 2 views of the left femur. No acute fracture or dislocation. Osteoarthritic change of the left hip. Osteopenia. IMPRESSION: No acute fracture or dislocation. Electronically signed by: Jose E Philippe DO 01/01/2024 03:30 AM. ED course: CLINICAL HISTORY: fall COMPARISON: None. TECHNIQUE: CT LUMBAR SPINE WITHOUT IV CONTRAST on 01/01/2024 2:50 AM CDT This exam was performed according to our departmental dose-optimization program, which includes automated exposure control, adjustment of the mA and/or kV according to patient size and/or use of iterative reconstruction technique. FINDINGS: There is no acute fracture. Vertebral body heights are preserved. Alignment is anatomic. There is lower lumbar facet arthritis. Disc spaces are maintained. Soft tissues are unremarkable. IMPRESSION: No acute fracture or subluxation. Electronically signed by: Glenn Blakely MD 01/01/2024 03:52 AM . ED course: CLINICAL HISTORY: pain after fall COMPARISON: None. TECHNIQUE: CT PELVIS WITHOUT IV CONTRAST on 01/01/2024 2:50 AM CDT This exam was performed according to our departmental dose-optimization program, which includes automated exposure control, adjustment of the mA and/or kV according to patient size and/or use of iterative reconstruction technique. FINDINGS: There is no bowel obstruction. Urinary bladder is unremarkable. There is no free fluid. Appendix is normal. There is a small fatcontaining left inguinal hernia. Skeleton: There are no acute osseous findings. No suspicious bony lesions. IMPRESSION: No definite acute posttraumatic findings.. 07:07 Differential diagnosis: arthritis, strain, fracture, sciatica, contusion, Herniated sp4 disc UTI. Data reviewed: vital signs, nurses notes. ED course: Patient stable for discharge home. 07:07 Consideration of Admission/Observation Escalation of care including sp4 admission/observation considered. Response to treatment: the patient's symptoms have markedly improved after treatment. 12/31 02:50 Order name: CT Lumbar Spine Wo Con sp4 12/31 02:50 Order name: CT Pelvis wo Cont sp4 12/31 02:50 Order name: Femur Left XRAY sp4 Administered Medications: 03:00 Drug: Acetaminophen PO 1000 mg PO once Route: PO; ha1 04:00 Follow up: Response: No adverse reaction; Marked relief of symptoms; Pain is decreased ha1 03:00 Drug: Ibuprofen PO 800 mg PO once Route: PO; ha1 04:00 Follow up: Response: No adverse reaction; Marked relief of symptoms ha1 04:58 Drug: traMADol PO 100 mg PO once Route: PO; rv 04:58 Follow up: Response: Medication administered at discharge. rv Disposition Summary: 01/01/24 04:54 Discharge Ordered Notes: Location: Home sp4 Problem: new sp4 Symptoms: have improved sp4 Condition: Stable sp4 Diagnosis - Contusion of lower back and pelvis sp4 - Acute fall, left pelvic contusion, acute lower back pain sp4 Followup: sp4 - With: Private Physician - When: 7 - 10 days - Reason: Recheck today's complaints Discharge Instructions: - Discharge Summary Sheet sp4 - Contusion, [id number] sp4 Forms: - Patient Portal Instructions sp4 Prescriptions: - Tramadol 50 mg Oral tablet - take 2 tablet ORAL route every 8 hours as needed; 25 tablet; Refills: 0, sp4 Product Selection Permitted - methocarbamol 750 mg Oral tablet - take 2 tablets ORAL route every 6 hours for 2 days PRN pain and muscle sp4 soreness; 60 tablet; Refills: 0, Product Selection Permitted Signatures: Dispatcher [employer] Elvin Fabian RN RN jb4 Dmitri Ortiz RN RN Tenisha Mcclain RN RN ha1 Joseph Clay MD MD sp4 Corrections: (The following items were deleted from the chart) 02:50 02:50 Femur Left+RAD.RAD.BRZ ordered. EDMS EDMS
--- NOTE | 2024-01-01 04:54 | ER ---
Nurse's Notes [facility] Name: Jackson Coretz Age: 73 yrs Sex: Male : 1950 Arrival Date: 01/01/2024 Time: 02:12 Bed 13 Private MD: Diagnosis: Contusion of lower back and pelvis;Acute fall, left pelvic contusion, acute lower back pain Presentation: 12/31 02:38 Chief complaint: Patient states: I was walking in the [employer] parking lot after it jb4 rained. I stepped on a wet spot, slipped and landed on my back. I think I may have bruised my left hip. Coronavirus screen: At this time, the client does not indicate any symptoms associated with coronavirus-19. Ebola Screen: No symptoms or risks identified at this time. Initial Sepsis Screen: Does the patient meet any 2 criteria? No. Patient's initial sepsis screen is negative. Does the patient have a suspected source of infection? No. Patient's initial sepsis screen is negative. Risk Assessment: Do you want to hurt yourself or someone else? Patient reports no desire to harm self or others. Onset of symptoms was January 01, 2024. Transition of care: patient was not received from another setting of care. 02:38 Method Of Arrival: Ambulatory jb4 02:38 Acuity: GELA 4 jb4 Historical: - Allergies: 02:39 No Known Allergies; jb4 - PMHx: 02:39 Hypertension; DVT; Diabetes - NIDDM; "clogged heart arteries" (Diabetes - NIDDM); jb4 - PSHx: 02:39 heart cath (Diabetes - NIDDM); jb4 - Immunization history:: Adult Immunizations up to date. - Infectious Disease History:: Denies. - Social history:: Smoking status: Patient denies any tobacco usage or history of. Patient uses alcohol, but reports only rare drinking. - Family history:: not pertinent. Screenin:57 Abuse screen: Denies threats or abuse. Denies injuries from another. Nutritional ha1 screening: No deficits noted. Tuberculosis screening: No symptoms or risk factors identified. Assessment: 02:37 General: Appears uncomfortable, Behavior is calm, cooperative. Pain: Complains of pain ha1 in left hip Pain does not radiate. Pain currently is 7 out of 10 on a pain scale. Quality of pain is described as aching, Pain began 2-3 days ago. Neuro: Level of Consciousness is awake, alert, obeys commands, Oriented to person, place, time, situation. Cardiovascular: Capillary refill < 3 seconds in bilateral toes Patient's skin is warm and dry. Respiratory: Airway is patent Respiratory effort is even, unlabored, Respiratory pattern is regular, symmetrical. Derm: Skin is pink, warm \\T\\ dry. Musculoskeletal: Circulation, motion, and sensation intact. Range of motion: intact in all extremities, Reports pain in left hip. 03:30 Reassessment: Patient and/or family updated on plan of care and expected duration. Pain ha1 level reassessed. Patient is alert, oriented x 3, equal unlabored respirations, skin warm/dry/pink. 04:30 Reassessment: Patient and/or family updated on plan of care and expected duration. Pain ha1 level reassessed. Patient is alert, oriented x 3, equal unlabored respirations, skin warm/dry/pink. Vital Signs: 02:38 Pulse 64; Resp 16; Temp 98.6(TE); Pulse Ox 100% on R/A; Weight 89.81 kg (R); Height 6 jb4 ft. 0 in. (R); 03:00 BP 164 / 87; Pulse 66; Resp 17 S; Pulse Ox 100% on R/A; ha1 04:00 BP 140 / 87; Pulse 68; Resp 17 S; Pulse Ox 98% on R/A; ha1 02:38 Body Mass Index 26.85 (89.81 kg, 182.88 cm) jb4 ED Course: 02:18 Patient arrived in ED. gm2 02:37 Patient has correct armband on for positive identification. Bed in low position. Call ha1 light in reach. Side rails up X 1. 02:39 Triage completed. jb4 02:39 Arm band placed on right wrist. jb4 02:44 Joseph Clay MD is Attending Physician. sp4 03:10 Tenisha Ramires, TONE is Primary Nurse. ha1 03:19 CT Lumbar Spine Wo Con In Process Unspecified. EDMS 03:19 CT Pelvis wo Cont In Process Unspecified. EDMS 03:23 Femur Left XRAY In Process Unspecified. EDMS 04:59 No provider procedures requiring assistance completed. Patient did not have IV access rv during this emergency room visit. Administered Medications: 03:00 Drug: Acetaminophen PO 1000 mg PO once Route: PO; ha1 04:00 Follow up: Response: No adverse reaction; Marked relief of symptoms; Pain is decreased ha1 03:00 Drug: Ibuprofen PO 800 mg PO once Route: PO; ha1 04:00 Follow up: Response: No adverse reaction; Marked relief of symptoms ha1 04:58 Drug: traMADol PO 100 mg PO once Route: PO; rv 04:58 Follow up: Response: Medication administered at discharge. rv Medication: 04:41 VIS not applicable for this client. ha1 Outcome: 04:54 Discharge ordered by . sp4 04:59 Discharged to home ambulatory, rv 04:59 Condition: good 04:59 Discharge instructions given to patient, Instructed on discharge instructions, follow up and referral plans. medication usage, Demonstrated understanding of instructions, follow-up care, medications, Prescriptions given X 2, 04:59 Patient left the ED. rv Signatures: Dispatcher [employer] EDMS Elvin Basurto RN RN jb4 Dmitri Ortiz RN RN rv Tenisha Ramires RN RN ha1 Joseph Clay MD MD sp4 Krista Davison gm2 Corrections: (The following items were deleted from the chart) 04:41 04:39 BP 106 / 79; Pulse 80bpm; Resp 17bpm; Spontaneous; Pulse Ox 98% RA; ha1 ha1
[2024-01-01 05:10] VITALS: BP 140/87; TEMP 98.6; O2SAT 98
--- NOTE | 2024-01-01 11:19 | RAD REPORT ---
EXAM DESCRIPTION: CT - Spine Lumbar Wo Con - 01/01/2024 6:34 am CLINICAL HISTORY: Fall COMPARISON: None TECHNIQUE: CT LUMBAR SPINE WITHOUT IV CONTRAST on 01/01/2024 2:50 AM CDT This exam was performed according to our departmental dose-optimization program, which includes autom ated exposure control, adjustment of the mA and/or kV according to patient size and/or use of iterati ve reconstruction technique. FINDINGS: There is no acute fracture. Vertebral body heights are preserved. Alignment is anatomic. T here is lower lumbar facet arthritis. Disc spaces are maintained. Soft tissues are unremarkable. IMPRESSION: No acute fracture or subluxation. Electronically signed by: Glenn Blakely MD 01/01/2024 03:52 AM CDT Due to temporary technical issues with the PACS/Fluency reporting system, reports are being signed by the in house radiologist without review as a courtesy to ensure prompt reporting. The interpreting r adiologist is fully responsible for the content of the report.
--- NOTE | 2024-01-01 11:23 | RAD REPORT ---
EXAM DESCRIPTION: CT - Pelvis Wo Cont - 01/01/2024 6:34 am CLINICAL HISTORY: Pain after fall COMPARISON: None. TECHNIQUE: CT PELVIS WITHOUT IV CONTRAST on 01/01/2024 2:50 AM CDT This exam was performed according to our departmental dose-optimization program, which includes autom ated exposure control, adjustment of the mA and/or kV according to patient size and/or use of iterati ve reconstruction technique. FINDINGS: There is no bowel obstruction. Urinary bladder is unremarkable. There is no free fluid. Ap pendix is normal. There is a small fat-containing left inguinal hernia. Skeleton: There are no acute osseous findings. No suspicious bony lesions. IMPRESSION: No definite acute posttraumatic findings. . Electronically signed by: Glenn Blakely MD 01/01/2024 03:54 AM CDT Due to temporary technical issues with the PACS/Fluency reporting system, reports are being signed by the in house radiologist without review as a courtesy to ensure prompt reporting. The interpreting r adiologist is fully responsible for the content of the report.
--- NOTE | 2024-01-01 11:30 | RAD REPORT ---
EXAM DESCRIPTION: RAD - Femur Left - 01/01/2024 3:21 am CLINICAL HISTORY: Pain after a fall COMPARISON: None. FINDINGS: 2 views of the left femur. No acute fracture or dislocation. Osteoarthritic change of the left hip. Osteopenia. IMPRESSION: No acute fracture or dislocation. Electronically signed by: Jose E Philippe DO 01/01/2024 03:30 AM CDT M Due to temporary technical issues with the PACS/Fluency reporting system, reports are being signed by the in house radiologist without review as a courtesy to ensure prompt reporting. The interpreting r adiologist is fully responsible for the content of the report.
== END 2024-01-01 04:59 | disposition home or self-care (01) ==
LOC: ER 02:12
DX: S30.0XXA Contusion of lower back and pelvis, initial encounter (principal); W18.30XA Fall on same level, unspecified, initial encounter; E11.9 Type 2 diabetes mellitus without complications; I10 Essential (primary) hypertension; Z98.61 Coronary angioplasty status
CPT/HCPCS: 72131; 72192; 99283

== ENCOUNTER → 2024-09-03 | Emergency (ER) | payer OTHER ==
[~2024-09-03] MED LIST: ASPIRIN 325 MG TAB ONE
[2024-09-03 09:43] LABS: Absolute Basophils 0.1 K/uL (0-0.5); Absolute Eosinophils 0.4 K/uL (0-0.5); Absolute Lymphocytes (CBC) 1.5 K/uL (0.7-4.9); Absolute Monocytes 0.7 K/uL (0.1-1.3); Absolute Neutrophil 4.4 K/uL (1.8-8.0); Basophils % 1.3 % (0-1.3); Eosinophils % 5.6 % (0-4.4); Hematocrit 42.7 % (39.6-49.0); Hemoglobin 14.5 g/dL (13.6-17.9); Lymphocytes % 20.5 % (15.3-44.8); MCH 30.3 pg (27.0-35.0); MCHC 33.9 g/dL (32.0-36.0); MCV 89.5 fL (80-100); MPV 7.7 fL (7.6-11.3); Monocytes % 9.8 % (3.3-12.3); Neutrophils % 62.8 % (41.7-73.7); Nucleated Red Blood Cells % 0.1 % (0-0); Platelets 192 thou/uL (152-406); RBC Red Blood Cell Count 4.77 M/uL (4.33-5.43)
--- NOTE | 2024-09-03 09:51 | RAD REPORT ---
EXAMINATION: CTA CHEST PE CLINICAL INDICATION: high ddimer TECHNIQUE: This examination was performed according to an angiographic protocol with 3D post-processi ng. This involves 3D reconstructions, MIPs, volume rendered images and/or shaded surface rendering. One or more of the following dose reduction techniques were used: Automated exposure control, adjustm ent of the mA and/or kV according to patient size, and/or iterative reconstruction. Unless otherwise specified, incidental findings do not require dedicated imaging follow-up. COMPARISON: 05/10/2019 FINDINGS: PULMONARY ARTERIES: Normal caliber. No evidence of pulmonary emboli to the subsegmental level. THORACIC AORTA: Normal caliber and configuration. LUNGS: No evidence of airspace or interstitial process. No nodules. Mild diffuse COPD. PLEURA: No pleural effusion. No pneumothorax. MEDIASTINUM AND LYMPH NODES: No mediastinal mass or fluid collection. Normal size mediastinal, hilar, and axillary lymph nodes. OSSEOUS STRUCTURES AND CHEST WALL: Intact. UPPER ABDOMEN: Small hiatal hernia. Cholelithiasis. IMPRESSION: No evidence of pulmonary emboli to the subsegmental level. Mild diffuse COPD. Cholelithiasis.
[2024-09-03 10:04] LABS: ALT/SGPT 35 U/L (16-61); AST/SGOT 17 U/L (15-37); Albumin 3.6 g/dL (3.4-5.0); Albumin/Globulin Ratio 0.9 (1.1-1.8); Alkaline Phosphatase 75 U/L (45-117); Anion Gap 8.2 mEq/L (5.0-15.0); BUN Blood Urea Nitrogen 11 mg/dL (7-18); Bicarbonate 27 mEq/L (21-32); Bilirubin Total 0.5 mg/dL (0.2-1.0); Globulin 3.9 g/dL (2.3-3.5); Glomerular Filtration Rate 79 ml/min (=/>90); Glucose Level 161 mg/dL (74-106); NT PRO-BNP 45 pg/mL (<450); PT Prothrombin Time 13.6 SECONDS (9.4-12.5); Potassium 4.2 mEq/L (3.5-5.1); Protein, Total 7.5 g/dL (6.4-8.2); Protime INR 1.22; Sodium Level 140 mEq/L (136-145)
[2024-09-03 10:05] LABS: Bilirubin Direct < 0.2 mg/dL (0-0.2); Bilirubin Indirect, Calculated 0.3 mg/dL (0.2-0.8)
[2024-09-03 10:06] LABS: Troponin High Sensitivity 97.3 pg/mL (<58.9)
--- NOTE | 2024-09-03 10:19 | ER ---
Nurse's Notes [facility] Name: Jackson Cortez Age: 74 yrs Sex: Male : 1950 Arrival Date: 09/03/2024 Time: 09:08 Bed 17 Private MD: Diagnosis: NSTEMI Presentation: 09/03 09:18 Chief complaint: Patient states: D dimer 3,[address] Duvall office blood draw. Sent in ll1 for further evaluation. No pain. States RLE US is negative. Coronavirus screen: Client denies travel out of the [place] in the last 14 days. At this time, the client does not indicate any symptoms associated with coronavirus-19. Ebola Screen: Patient denies travel to an Ebola-affected area in the 21 days before illness onset. Initial Sepsis Screen: Does the patient meet any 2 criteria? No. Patient's initial sepsis screen is negative. Does the patient have a suspected source of infection? No. Patient's initial sepsis screen is negative. Risk Assessment: Do you want to hurt yourself or someone else? Patient reports no desire to harm self or others. Onset of symptoms was September 02, 2023. 09:18 Method Of Arrival: Ambulatory ll1 09:18 Acuity: GELA 3 ll1 Triage Assessment: 09:19 General: Appears in no apparent distress. Behavior is calm, cooperative, appropriate ll1 for age. General: Reports elevated D-dimer. Pain: Denies pain. Neuro: No deficits noted. Historical: - Allergies: 09:13 No Known Allergies; ll1 - PMHx: 09:13 Diabetes - NIDDM; DVT; Hypertension; ll1 - PSHx: 09:13 heart cath (es); ll1 - Immunization history:: Adult Immunizations up to date. - Infectious Disease History:: Denies. - Social history:: Smoking status: Patient denies any tobacco usage or history of. Screenin:25 [facility] ED Fall Risk Assessment (Adult) History of falling in the last 3 months, db including since admission No falls in past 3 months (0 pts) Confusion or Disorientation No (0 pts) Intoxicated or Sedated No (0 pts) Impaired Gait No (0 pts) Mobility Assist Device Used No (0 pt) Altered Elimination No (0 pt) Score/Fall Risk Level 0 - 2 = Low Risk Oriented to surroundings, Maintained a safe environment. Abuse screen: Denies threats or abuse. Denies injuries from another. Nutritional screening: No deficits noted. Tuberculosis screening: No symptoms or risk factors identified. Assessment: 09:24 Reassessment: Patient appears in no apparent distress at this time. Patient and/or db family updated on plan of care and expected duration. Pain level reassessed. Patient is alert, oriented x 3, equal unlabored respirations, skin warm/dry/pink. General: Appears in no apparent distress. comfortable, Behavior is calm, cooperative. Neuro: Level of Consciousness is awake, alert, obeys commands, Oriented to person, place, time, situation. Respiratory: Airway is patent Respiratory effort is even, unlabored, Respiratory pattern is regular, symmetrical. 09:46 Reassessment: Patient appears in no apparent distress at this time. Patient and/or db family updated on plan of care and expected duration. Pain level reassessed. Patient is alert, oriented x 3, equal unlabored respirations, skin warm/dry/pink. 10:00 Reassessment: Patient appears in no apparent distress at this time. Patient and/or db family updated on plan of care and expected duration. Pain level reassessed. Patient is alert, oriented x 3, equal unlabored respirations, skin warm/dry/pink. 11:00 Reassessment: Patient appears in no apparent distress at this time. Patient and/or db family updated on plan of care and expected duration. Pain level reassessed. Patient is alert, oriented x 3, equal unlabored respirations, skin warm/dry/pink. 12:49 Reassessment: Patient appears in no apparent distress at this time. Patient and/or db family updated on plan of care and expected duration. Pain level reassessed. Patient is alert, oriented x 3, equal unlabored respirations, skin warm/dry/pink. DR. SAAVEDRA AT PATIENT BEDSIDE SPEAKING WITH PATIENT. PATIENT [facility]BULATORY IN [facility]. 13:12 Reassessment: Patient appears in no apparent distress at this time. Patient and/or db family updated on plan of care and expected duration. Pain level reassessed. Patient is alert, oriented x 3, equal unlabored respirations, skin warm/dry/pink. 14:22 Reassessment: Patient appears in no apparent distress at this time. Patient and/or db family updated on plan of care and expected duration. Pain level reassessed. Patient is alert, oriented x 3, equal unlabored respirations, skin warm/dry/pink. Vital Signs: 09:15 BP 156 / 90; Pulse 72; Resp 16; Pulse Ox 100% on R/A; db 09:18 BP 156 / 101; Pulse 73; Resp 17; Temp 98.2; Pulse Ox 100% on R/A; Weight 87.09 kg; ll1 Height 6 ft. 0 in. ; Pain 0/10; 10:15 BP 163 / 85; Pulse 72; Resp 16; Pulse Ox 100% on R/A; db 11:00 BP 152 / 65; Pulse 68; Resp 16; Pulse Ox 100% ; db 12:00 BP 154 / 86; Pulse 68; Resp 14; Pulse Ox 100% on R/A; db 13:15 BP 142 / 88; Pulse 69; Resp 16; Pulse Ox 100% ; db 09:18 Body Mass Index 26.04 (87.09 kg, 182.88 cm) ll1 09:18 Pain Scale: Adult ll1 ED Course: 09:11 Patient arrived in ED. mr 09:12 Immanuel Olivera MD is Attending Physician. sp3 09:13 Arm band placed on Patient placed in an exam room, on a stretcher. ll1 09:14 Lyndsay Dixon, TONE is Primary Nurse. db 09:19 Triage completed. ll1 09:24 Initial lab(s) drawn, by me, sent to lab. Inserted saline lock: 20 gauge in right db antecubital area, using aseptic technique. Blood collected. Flushed with 10 mL NS. 09:42 CT Chest For PE Angio In Process Unspecified. EDMS 09:[address]. db 10:17 Aryan Gottileb MD is Hospitalizing Provider. sp3 12:51 Patient has correct armband on for positive identification. Bed in low position. Call db light in reach. Side rails up X 1. Client placed on continuous cardiac and pulse oximetry monitoring. NIBP monitoring applied. rn labor and delivery on. Pulse ox on. NIBP on. Pillow given. 13:00 Repeat lab(s) drawn. by me, sent to lab. db 14:22 Provided Education on: DISCHARGE FROM [facility]. db 14:22 No provider procedures requiring assistance completed. IV discontinued, intact, db bleeding controlled, No redness/swelling at site. Administered Medications: 11:22 Drug: Aspirin PO 325 mg PO once Route: PO; db 13:00 Follow up: Response: No adverse reaction db Medication: 12:49 VIS not applicable for this client. db Outcome: 10:18 Decision to Hospitalize by Provider. sp3 14:22 Admitted to ER Hold. Please see [facility] for further documentation. db 14:22 Condition: stable 14:22 Instructed on the need for admit, 14:24 Patient left the ED. db Signatures: Dispatcher [employer] EDAvelina Franklin, Reg Reg mr Jazmyne Cunha, RN RN ll1 Immanuel Olivera MD MD sp3 Lyndsay Dixon RN RN db
--- NOTE | 2024-09-03 10:19 | EDPHYS ---
Physician Documentation [facility] Name: Jackson Cortez Age: 74 yrs Sex: Male : 1950 Arrival Date: 09/03/2024 Time: 09:08 Bed 17 Private MD: ED Physician Immanuel Olivera HPI: 09/03 09:38 This 74 yrs old Male presents to ER via Ambulatory with complaints of Abnormal Lab sp3 Results. 09:38 74-year-old male presents to the ED from his primary care provider for elevated sp3 D-dimer. Patient was having right leg pain and obtained outpatient ultrasound which demonstrated no clot but outpatient labs also demonstrated elevated D-dimer 3000+ and so is referred here for CT chest. Patient has no symptoms whatsoever including headache, neck pain, chest pain, shortness of breath, back pain abdominal pain, nausea, vomiting, diarrhea, syncope, near syncope, prolonged immobilization, travel history, ongoing lower extremity pain, upper extremity pain or any other signs or symptoms on ROS at this time.. Historical: - Allergies: 09:13 No Known Allergies; ll1 - PMHx: 09:13 Diabetes - NIDDM; DVT; Hypertension; ll1 - PSHx: 09:13 heart cath (es); ll1 - Immunization history:: Adult Immunizations up to date. - Infectious Disease History:: Denies. - Social history:: Smoking status: Patient denies any tobacco usage or history of. ROS: 09:41 Constitutional: Negative for fever, chills, and weight loss, Eyes: Negative for injury, sp3 pain, redness, and discharge, ENT: Negative for injury, pain, and discharge, Neck: Negative for injury, pain, and swelling, Cardiovascular: Negative for chest pain, palpitations, and edema, Respiratory: Negative for shortness of breath, cough, wheezing, and pleuritic chest pain, Abdomen/GI: Negative for abdominal pain, nausea, vomiting, diarrhea, and constipation, Back: Negative for injury and pain, MS/Extremity: Negative for injury and deformity, Skin: Negative for injury, rash, and discoloration, Neuro: Negative for headache, weakness, numbness, tingling, and seizure, Psych: Negative for depression, anxiety, suicide ideation, homicidal ideation, and hallucinations, Allergy/Immunology: Negative for hives, rash, and allergies, Endocrine: Negative for neck swelling, polydipsia, polyuria, polyphagia, and marked weight changes, Hematologic/Lymphatic: Negative for swollen nodes, abnormal bleeding, and unusual bruising, 09:41 All other systems are negative, Exam: 09:41 Constitutional: This is a well developed, well nourished patient who is awake, alert, sp3 and in no acute distress. Head/Face: Normocephalic, atraumatic. Eyes: Pupils equal round and reactive to light, extra-ocular motions intact. Lids and lashes normal. Conjunctiva and sclera are non-icteric and not injected. Cornea within normal limits. Periorbital areas with no swelling, redness, or edema. Neck: Trachea midline, no thyromegaly or masses palpated, and no cervical lymphadenopathy. Supple, full range of motion without nuchal rigidity, or vertebral point tenderness. No Meningismus. Chest/axilla: Normal chest wall appearance and motion. Nontender with no deformity. No lesions are appreciated. Cardiovascular: Regular rate and rhythm with a normal S1 and S2. No gallops, murmurs, or rubs. Normal PMI, no JVD. No pulse deficits. Respiratory: Lungs have equal breath sounds bilaterally, clear to auscultation and percussion. No rales, rhonchi or wheezes noted. No increased work of breathing, no retractions or nasal flaring. Abdomen/GI: Soft, non-tender, with normal bowel sounds. No distension or tympany. No guarding or rebound. No evidence of tenderness throughout. Back: No spinal tenderness. No costovertebral tenderness. Full range of motion. Skin: Warm, dry with normal turgor. Normal color with no rashes, no lesions, and no evidence of cellulitis. MS/ Extremity: Pulses equal, no cyanosis. Neurovascular intact. Full, normal range of motion. Neuro: Awake and alert, GCS 15, oriented to person, place, time, and situation. Cranial nerves II-XII grossly intact. Motor strength 5/5 in all extremities. Sensory grossly intact. Cerebellar exam normal. Normal gait. Psych: Awake, alert, with orientation to person, place and time. Behavior, mood, and affect are within normal limits. 10:08 ECG was reviewed by the Attending Physician. EKG demonstrates normal sinus rhythm at 90 sp3 bpm with normal intervals, normal QRS, normal axis, nonspecific diffuse ST/T changes in the inferior leads without evidence of acute ischemia. Vital Signs: 09:15 BP 156 / 90; Pulse 72; Resp 16; Pulse Ox 100% on R/A; db 09:18 BP 156 / 101; Pulse 73; Resp 17; Temp 98.2; Pulse Ox 100% on R/A; Weight 87.09 kg; ll1 Height 6 ft. 0 in. ; Pain 0/10; 10:15 BP 163 / 85; Pulse 72; Resp 16; Pulse Ox 100% on R/A; db 11:00 BP 152 / 65; Pulse 68; Resp 16; Pulse Ox 100% ; db 12:00 BP 154 / 86; Pulse 68; Resp 14; Pulse Ox 100% on R/A; db 13:15 BP 142 / 88; Pulse 69; Resp 16; Pulse Ox 100% ; db 09:18 Body Mass Index 26.04 (87.09 kg, 182.88 cm) ll1 09:18 Pain Scale: Adult ll1 MDM: 09:17 Medical Screening Exam initiated sp3 09:44 Data reviewed: vital signs, nurses notes, lab test result(s), EKG, radiologic studies. sp3 ED course: 74-year-old male with elevated D-dimer with no clinical signs or symptoms of PE or any other pathway. Patient has no pain, shortness of breath or any other symptoms whatsoever. However given his elevated D-dimer and request by PCP, we will obtain CT scan of the chest, general labs and EKG. If workup negative we will safely discharged home.. 10:09 ED course: CT chest negative for PE and remainder of labs normal. Troponin at 97 in the sp3 setting of nonischemic EKG. Will bring patient in and consult cardiology with serial cardiac markers.. 09/03 09:26 Order name: Basic Metabolic Panel; Complete Time: 10: 3 09/03 09:26 Order name: CBC with Diff; Complete Time: 09:52 sp3 09/03 09:26 Order name: LFT's; Complete Time: 10: sp3 09/03 09:26 Order name: Magnesium; Complete Time: 10:07 3 09/03 09:26 Order name: NT PRO-BNP; Complete Time: 10: 3 09/03 09:26 Order name: PT-INR; Complete Time: 10:06 sp3 09/03 09:26 Order name: Troponin HS; Complete Time: 10:07 sp3 09/03 12:28 Order name: Troponin High Sensitivity EDMS 09/03 09:26 Order name: CT Chest For PE Angio; Complete Time: 09:52 sp3 09/03 09:26 Order name: EKG; Complete Time: 09:26 sp3 09/03 09:26 Order name: Cardiac monitoring; Complete Time: 09:42 sp3 09/03 09:26 Order name: EKG - Nurse/Tech; Complete Time: 09:51 sp3 09/03 09:26 Order name: IV Saline Lock; Complete Time: 09:27 sp3 09/03 09:26 Order name: Labs collected and sent; Complete Time: 09:27 sp3 09/03 09:26 Order name: O2 Per Protocol; Complete Time: 09:27 sp3 09/03 09:26 Order name: O2 Sat Monitoring; Complete Time: 09:44 sp3 Administered Medications: 11:22 Drug: Aspirin PO 325 mg PO once Route: PO; db 13:00 Follow up: Response: No adverse reaction db Disposition Summary: 09/03/24 10:18 Hospitalization Ordered Notes: Hospitalization Status: Inpatient Admission sp3 Provider: Aryan Gottlieb sp3 [facility] sp3 Condition: Stable sp3 Problem: new sp3 Symptoms: have worsened sp3 Bed/Room Type: Standard sp3 Room Assignment: sp3 Diagnosis - NSTEMI sp3 Forms: - Medication Reconciliation Form sp3 - SBAR form sp3 - Leadership Thank You Letter sp3 Signatures: Dispatcher [employer] Jazmyne Wasserman RN RN ll1 Immanuel Olivera MD MD sp3 Lyndsay Dixon RN RN db Corrections: (The following items were deleted from the chart) 09: 09:26 Chest For PE Angio+CT.RAD.BRZ ordered. EDKS HERIBERTOMS
[2024-09-03 13:34] VITALS: BP 110/60; TEMP 98
--- NOTE | 2024-09-03 13:34 | P.HP ---
Certification for Inpatient Patient admitted to: Observation With expected LOS: <2 Midnights Patient will require the following post-hospital care: None Practitioner: I am a practitioner with admitting privileges, knowledge of patient current condition, hospital course, and medical plan of care. Services: Services provided to patient in accordance with Admission requirements found in Title 42 Section 412.3 of the Code of Federal Regulations Patient History Date of Service: 09/03/24 Reason for admission: PCP told patient to go into the ER b/c labs from yesterday showed abnl History of Present Illness: Patient is a 74-year-old gentleman who comes into the ER because he had seen a new PCP yesterday and she had done lab workup which all came back normal except for a troponin which was mildly elevated. Patient was not having any chest pain or shortness of breath. He got the phone call this morning to tell him to go to the ER because of the lab abnormality. He felt good, and he did not feel like he needed to be in the emergency room but he was wanting to comply with her request. He had walked his dog this morning and he did not have any symptoms of chest pain or shortness of breath or diaphoresis. He never got lightheaded. He says he has been doing fine since November when they made medication adjustments. He follows up with Dr. Pardo. He had a cardiac catheterization performed in November which showed diffuse CAD. They did try to stent the left circumflex but were unsuccessful. However, patient did have collaterals so the patient did not need emergent transfer. They managed him medically by changing some of his antiplatelet regimens and patient has been doing really well since that time. Patient did have a cardiac cath done a few years ago which showed similar disease process. At that time his activity director chose not to do any stents because of collaterals as well. Patient is currently doing well he does not really know why he is in the emergency room. I do not feel he needs to be admitted just because his troponins are elevated. I will repeat his troponins and plan to discharge him if they are no significant changes. I did speak to activity director and they are in agreement with plan. Allergies No Known Allergies Allergy (Verified 10/09/23 13:31) Home Medications: Metformin HCl [Glucophage*] 850 mg PO BIDWM 06/06/15 Cyanocobalamin (Vitamin B-12) [Vitamin B12] 2,500 mcg PO DAILY 10/03/20 Metoprolol Tartrate [Lopressor*] 25 mg PO BID 10/03/20 Pantoprazole [Protonix Tab*] 40 mg PO DAILY 10/03/20 Aspirin [Aspirin EC 81 MG] 81 mg PO DAILY #30 tablet. 10/04/20 Atorvastatin Calcium [Lipitor] 40 mg PO BEDTIME #30 tab 10/04/20 Clopidogrel Bisulfate [Plavix] 75 mg PO DAILY #30 tablet 10/04/20 Nitroglycerin [Nitrostat*] 0.4 mg SL UD PRN #30 tab 10/04/20 - Past Medical/Surgical History Diabetic: Yes -: Diabetes -: Hypertension -: DVT -: CAD -: Hernia repair -: Cardiac catheterization - Family History Mother Medical History: Stroke Brother Medical History: Diabetes - Social History Smoking Status: Former smoker Alcohol use: No CD- Drugs: No Caffeine use: No Review of Systems 10-point ROS is otherwise unremarkable Physical Examination - Vital Signs Temperature: 98 F Blood Pressure: 110/60 Pulse: 80 Respirations: 18 Pulse Ox (%): 96 - Physical Exam General: Alert, In no apparent distress, Oriented x3 HEENT: Atraumatic, PERRLA, Mucous membr. moist/pink, EOMI, Sclerae nonicteric Neck: Supple, 2+ carotid pulse no bruit, No LAD, Without JVD or thyroid abnormality Respiratory: Clear to auscultation bilaterally, Normal air movement Cardiovascular: Regular rate/rhythm, Normal S1 S2 Gastrointestinal: Normal bowel sounds, Soft and benign, Non-distended, No tenderness Musculoskeletal: No clubbing, No swelling, No tenderness Integumentary: No rashes Neurological: Normal gait, Normal speech, Normal strength at 5/5 x4 extr, Normal tone, Sensation intact, Cranial nerves 3-12 intact, Normal affect Lymphatics: No axilla or inguinal lymphadenopathy - Studies Laboratory Data (last 24 hrs) 09/03/24 09/03/24 09/03/24 09:24 09:24 09:24 WBC 7.10 Hgb 14.5 Hct 42.7 Plt Count 192 PT 13.6 H INR 1.22 Sodium 140 Potassium 4.2 BUN 11 Creatinine 0.99 Glucose 161 H Magnesium 2.0 Total Bilirubin 0.5 AST 17 ALT 35 Alkaline Phosphatase 75 Assessment & Plan - Problems (Diagnosis) (1) Type 2 myocardial infarction Current Visit: Yes Status: Acute (2) CAD (coronary artery disease) Current Visit: No Status: Acute (3) DM type 2 (diabetes mellitus, type 2) Current Visit: No Status: Acute (4) Hypertension Current Visit: No Status: Acute - Plan Plan: 1. Patient with type II myocardial infarction. Patient with a history of CAD. Elevated troponins are not unexpected in patients with significant CAD such as patient has. We normally look at the delta regarding the troponins and if the delta is concerning then patient needs to be evaluated. Patient had high- sensitivity troponins performed and these tend to be elevated in most patients that have any coronary artery disease. Patient has extensive CAD so this is not unexpected. If the delta is not significantly changed benign we will discharge him and he will continue with medication regimen as discharged. 2. Patient with carotid artery disease; patient says he has significant left carotid artery occlusions as well. Patient has significant vasculopathy. He is on appropriate medication regimen. As long as he is asymptomatic he will need to continue following up as an outpatient. He is following up with Dr. Webber and he has a new PCP that he needs to continue to follow-up. 3. Hypertension; resume antihypertensives 4. Type 2 diabetes; continue with diabetic meds 5. GI DVT prophylax Discharge Plan: Home Plan to discharge in: 24 Hours - Advance Directives Does patient have a Living Will: No Does patient have a Durable POA for Healthcare: No - Code Status/Comfort Care Code Status Assessed: Yes Code Status: Full Code Critical Care: No Time Spent Managing PTS Care (In Minutes): 55
[2024-09-03 14:35] VITALS: O2SAT 100
--- NOTE | 2024-09-06 10:53 | EKG ---
Test Date: 2024-09-03 Test Time: 09:53:[address] Technologist: DEIDRE MEASUREMENT RESULTS: Intervals: Rate: 69 CA: 186 QRSD: 82 QT: 386 QTc: 413 [place]: P: 54 CA: 186 QRS: 17 T: 35 INTERPRETIVE STATEMENTS: Normal sinus rhythm Normal ECG Compared to ECG 10/09/2023 14:47:08 Sinus bradycardia no longer present Electronically Signed On 09-06-24 10:50:12 SUPPLEMENTAL MANAGER by Pranav Irizarry
== END | disposition home or self-care (01) ==
LOC: ER 09:08
DX: I21.4 Non-ST elevation (NSTEMI) myocardial infarction (principal); I10 Essential (primary) hypertension
CPT/HCPCS: 93005; 85025; 80048; 36415; 83735; 85610; 80076; 84484 ×2; 83880; 71275; 99285; Q9967